=== PATIENT | female | born 1995 | race Two or more races ===

== ENCOUNTER 2024-10-13 16:47 | Emergency (ER) | payer MEDICAID, SELFPAY ==
[2024-10-13 17:07] VITALS: BP 124/80; PULSE 88; RESP 18; TEMP 37.1; O2SAT 99; BMI 40.0
--- NOTE | 2024-10-13 17:14 | PD.EDRME ---
Rapid Medical Screening Exam RME Arrival date/time: 10/13/24 16:47 28-year-old female presents emergency department complaining of blurry vision and chest pain that started at work around 3 PM. Chief Complaint: Eye Problems Vital signs: Vital Signs Temperature 98.7 F 10/13/24 17:07 Pulse Rate 88 10/13/24 17:07 Respiratory Rate 18 10/13/24 17:07 Blood Pressure 124/80 10/13/24 17:07 Pulse Oximetry (%) 99 10/13/24 17:07 Oxygen Delivery Method Room Air 10/13/24 17:07 Vital signs reviewed by provider: Yes
--- NOTE | 2024-10-13 17:16 | XR_ITS ---
Examination: PA lateral chest 2 views Technique: Upright PA lateral chest 2 views Exam date and time: October 13, 2024 at 1737 hrs. Indications: Chest pain today Findings: Normal heart size No pneumonia or pulmonary edema The osseous structures are intact Impression: No active disease
--- NOTE | 2024-10-13 17:16 | XR_ITS ---
Examination: CT brain head without contrast. 2-D sagittal coronal reconstructions Date and time of exam:October 13, 2024 1723 hrs. Indications: Onset headaches blurred vision today CTDI: vol (mGy):51.2 DLP: (mGycm):1019 Technique: Multiple CT axial sections of the brain have been obtained, 5 mm slice thickness. Contrast has not been administered. 2-D sagittal, coronal reconstructions have been obtained Low dose protocols were performed. One or more of the following dose reduction techniques were used; automated exposure control, adjustment of the mA and/or KV according to patient size, use of iterative reconstruction technique. Findings: No significant ventricular enlargement. Intra-axial or extra-axial hemorrhage density is not seen. No mass effect or midline shift Basal cisterns are not remarkable. Fourth ventricle is midline. Cranial vault intact. Impression: Negative for acute hemorrhage, mass effect or midline shift If new onset headaches blurred vision persists, consider brain MRI follow-up
--- NOTE | 2024-10-13 17:16 | EKG_ITS ---
[facility] Test Date: 2024-10-13 Pat Name: CARRIE ORTEGA Department: Room: - Gender: Female [employer]om Boss: : 1995 Requested By: Raad Can ([facility]) Order Number: [id number] Reading MD: Raad Can ([facility]) Measurements Intervals [place] Rate: 72 P: 18 HI: 150 QRS: 30 QRSD: 81 T: 16 QT: 357 QTc: 391 Interpretive Statements SINUS RHYTHM Compared to ECG 06/29/2023 15:10:30 No significant changes /store/S0/[id number].pdf
[2024-10-13 18:34] LABS: Basophils # (Auto) 0.1 Thou/mm3 (0.0-0.2); Basophils % (Auto) 1 % (0-2.5); Eosinophils # (Auto) 0.2 Thou/mm3 (0.0-0.5); Eosinophils % (Auto) 2 % (0-10); Hematocrit 43.3 % (36.0-46.0); Hemoglobin 15.1 g/dL (12.0-16.0); Immature Granulocytes % (Auto) 0 % (0-0); Immature Granulocytes Auto 0.02 Thou/mm3 (0.00-0.00); Lymphocytes # (Auto) 2.9 Thou/mm3 (1.0-4.8); Lymphocytes % (Auto) 28 % (10-50); Mean Corpuscular HGB Conc 34.9 g/dl (31.0-37.0); Mean Corpuscular Hemoglobin 31.1 pg (25.0-35.0); Mean Corpuscular Volume 89 fL (80-100); Monocytes # (Auto) 0.8 Thou/mm3 (0.0-0.8); Monocytes % (Auto) 7 % (0-12); Neutrophils # (Auto) 6.4 Thou/mm3 (1.8-7.7); Neutrophils % (Auto) 62 % (37-80); Nucleated Red Blood Cell % 0 /100 WBC (0); Platelet Count 267 Thou/mm3 (140-440); RDW Standard Deviation 41.2 fL (36.4-46.3); Red Blood Count 4.85 Miln/mm3 (4.00-5.20); White Blood Count 10.3 Thou/mm3 (3.6-11.0)
[2024-10-13 18:43] LABS: Amphetamine/Methamp Scrn,U Negative (Negative); Barbiturate Screen,Urine Negative (Negative); Benzodiazepines Screen,Urine Negative (Negative); Benzoylecgonine Screen, Ur Negative (Negative); Fentanyl Screen,Urine Negative (Negative); Opiate Screen,Urine Negative (Negative); THC Screen,Urine Negative (Negative)
[2024-10-13 18:52] LABS: Alanine Aminotransferase 84 U/L (10-49); Alkaline Phosphatase 50 U/L (46-116); Anion Gap 5 (7-16); Aspartate Amino Transferase 36 U/L (0-34); BUN/Creatinine Ratio 19 Ratio (12-20); Bilirubin,Total 0.5 mg/dL (0.3-1.2); Blood Urea Nitrogen 13 mg/dL (9-23); Calcium 10.1 mg/dL (8.3-10.6); Calcium (Corrected) 10.1 mg/dL (8.5-10.1); Carbon Dioxide 28.8 mMol/L (20.0-31.0); Chloride 104 mMol/L (98-107); Creatinine (Component) 0.7 mg/dL (0.6-1.3); Estimated Creatinine Clearance 150.8 mL/min (>60); Globulin 2.5 gm/dL (2.3-3.5); Glucose 91 mg/dL (74-106); Osmolality,Calculated 275 (275-295); Potassium 4.2 mMol/L (3.4-5.1); Sodium 138 mMol/L (136-145); Total Protein 7.5 gm/dL (5.7-8.2); Troponin I < 0.002 ng/mL (0.0-0.045); eGFR > 60 See Note
[2024-10-13 18:57] LABS: Partial Thromboplastin Time 28.5 Seconds (22.0-36.0); Prothrombin Time 10.9 Seconds (9.0-12.2)
--- NOTE | 2024-10-13 20:20 | PC.NURSE ---
NO ANSWER AT ER LOBBY OR OUTSIDE ER TO BE RE EVALUATED.
--- NOTE | 2024-10-13 20:33 | PC.NURSE ---
NO ANSWER AT ER LOBBY OR OUTSIDE ER.
--- NOTE | 2024-10-13 20:51 | PC.NURSE ---
NO ANSWER AT ER LOBBY OR OUTSIDE ER.
== END 2024-10-13 20:52 | disposition left against medical advice (07) ==
PROVIDERS: Emergency Provider Licensed Practical Nurse; PCP Physician Assistant
DX: H53.8 Other visual disturbances (principal); R07.9 Chest pain, unspecified; Z53.21 Procedure and treatment not carried out due to patient leaving prior to being seen by health care provider
CPT/HCPCS: 36415; 70450; 71046; 80053; 80307; 83735; 84484; 85025; 85610; 85730; 93005; 99281

== ENCOUNTER 2025-07-31 12:06 | Emergency (ER) | payer MEDICAID, SELFPAY ==
[2025-07-31 12:24] VITALS: BP 111/75; PULSE 78; RESP 16; TEMP 37.1; O2SAT 97; BMI 40.6
--- NOTE | 2025-07-31 12:28 | XR_ITS ---
Examination: Complete OB ultrasound, less than 14 weeks, transabdominal Date and time of exam: July 31, 2025 1306 hours INDICATIONS: Vaginal bleeding and pelvic cramping beginning 2 days ago Technique: Obstetrical ultrasound images less than 14 weeks performed via transabdominal imaging Findings: Uterus 10.7 cm Empty intrauterine gestational sac 1.5 cm correspondences 6 weeks 2 days gestational age No pole, no cardiac activity Subchorionic hemorrhages 16 x 6 x 16 mm Right ovary 4.8 cm arterial flow 35 mm I 24 mm cyst Left ovary 2.7 cm arterial flow IMPRESSION: Empty intrauterine gestational sac corresponding to 6 weeks 2 days gestational age Recommend short-term follow-up transvaginal pelvic sonography
[2025-07-31 12:59] LABS: Collection Type, Urine Clean Catch
[2025-07-31 13:03] LABS: Basophils # (Auto) 0.0 Thou/mm3 (0.0-0.2); Basophils % (Auto) 0 % (0-2.5); Eosinophils # (Auto) 0.1 Thou/mm3 (0.0-0.5); Eosinophils % (Auto) 1 % (0-10); Hematocrit 39.3 % (36.0-46.0); Hemoglobin 13.5 g/dL (12.0-16.0); Immature Granulocytes Auto 0.04 Thou/mm3 (0.00-0.00); Lymphocytes # (Auto) 2.3 Thou/mm3 (1.0-4.8); Lymphocytes % (Auto) 23 % (10-50); Mean Corpuscular HGB Conc 34.4 g/dl (31.0-37.0); Mean Corpuscular Hemoglobin 30.8 pg (25.0-35.0); Mean Corpuscular Volume 90 fL (80-100); Monocytes # (Auto) 0.5 Thou/mm3 (0.0-0.8); Monocytes % (Auto) 6 % (0-12); Neutrophils # (Auto) 6.7 Thou/mm3 (1.8-7.7); Neutrophils % (Auto) 70 % (37-80); Nucleated Red Blood Cell # 0.00 Thou/mm3 (0.00-0.00); Nucleated Red Blood Cell % 0 /100 WBC (0); Platelet Count 219 Thou/mm3 (140-440); RDW Standard Deviation 42.5 fL (36.4-46.3); Red Blood Count 4.38 Miln/mm3 (4.00-5.20); White Blood Count 9.6 Thou/mm3 (3.6-11.0)
[2025-07-31 13:11] LABS: Bilirubin,Urine Negative (Negative); Blood,Urine Negative (Negative); Clarity,Urine Clear (Clear/Hazy); Color,Urine Lt-Yellow (Lt Yel-Yel); Glucose, Urine Negative (Negative); Ketones,Urine Negative (Negative); Leukocyte Esterase,Urine Negative (Negative); Nitrite,Urine Negative (Negative); PH,Urine 5.5 (5.0-7.0); Protein,Urine Negative (Neg - Trace); RBC,Urine 2 /hpf (0-3); Specific Gravity,Urine 1.024 (1.001-1.035); Squamous Epithelial Cell,Urine 1 /hpf (0-5); Urobilinogen,Urine Negative mg/dL (0.0-1.0); WBC,Urine 1 /hpf (0-5)
[2025-07-31 13:25] LABS: Alanine Aminotransferase 17 U/L (10-49); Albumin, Serum 4.1 gm/dL (3.5-5.0); Albumin/Globulin Ratio 1.7 (1.2-2.2); Alkaline Phosphatase 35 U/L (46-116); Anion Gap 9 (7-16); Aspartate Amino Transferase 14 U/L (0-34); BUN/Creatinine Ratio 8 Ratio (12-20); Bilirubin,Total 0.4 mg/dL (0.3-1.2); Blood Urea Nitrogen 5 mg/dL (9-23); Calcium 9.8 mg/dL (8.3-10.6); Calcium (Corrected) 9.8 mg/dL (8.5-10.1); Carbon Dioxide 25.1 mMol/L (20.0-31.0); Chloride 106 mMol/L (98-107); Creatinine (Component) 0.6 mg/dL (0.6-1.3); Estimated Creatinine Clearance 176.0 mL/min (>60); Globulin 2.4 gm/dL (2.3-3.5); Glucose 111 mg/dL (74-106); Osmolality,Calculated 277 (275-295); Potassium 3.9 mMol/L (3.4-5.1); Sodium 140 mMol/L (136-145); Total Protein 6.5 gm/dL (5.7-8.2); eGFR > 60 See Note
[2025-07-31 13:52] LABS: Beta HCG,Quantitative 18732 mIU/mL (<5.0)
--- NOTE | 2025-07-31 14:46 | EDNOTE_ITS ---
<Statement entered by Anali Hodgson MD - 08/19/25 06:05> As co-signing physician, I was present and available for consult prn. I concur with the plan and care as documented by the midlevel provider. ED Abdominal Pain RME/HPI General Chief Complaint: Abdominal Pain Stated complaint: ABD CRAMPING, APPROX 6 WEEKS PREG Time seen by provider: 07/31/25 12:27 Arrival date/time: 07/31/25 12:06 29year-old female presents to the emergency department today for complaints of pelvic cramping patient for symptoms onset 2 to 3 days ago patient was reports vaginal spotting Limitations: no limitations Related Data Previous Rx's ?Medication ?Instructions ?Recorded ondansetron 4 mg disintegrating 4 mg PO Q6H PRN nausea and 12/14/23 tablet vomiting #10 tabs ibuprofen 800 mg tablet (IBU) 800 mg PO Q8H #20 tabs 0 07/05/24 Allergies Allergy/AdvReac Type Severity Reaction Status Date / Time No Known Allergies Allergy Verified 10/13/24 16:48 Review of Systems Review of Systems Systems Reviewed: All systems reviewed, normal except as documented Constitutional Constitutional: Reports system reviewed and no additional complaints, except as documented, Denies fever(s) and Denies headache(s) Eyes Eyes: Reports system reviewed and no additional complaints, except as documented and Denies blurry vision ENT Ears, Nose, Mouth, and Throat: Reports system reviewed and no additional complaints, except as documented, Denies headache(s), Denies nasal congestion and Denies nasal discharge Cardiovascular Cardiovascular: Reports system reviewed and no additional complaints, except as documented, Denies chest pain and Denies dyspnea Respiratory Respiratory: Reports system reviewed and no additional complaints, except as documented, Denies chest congestion, Denies cough and Denies dyspnea Gastrointestinal Gastrointestinal: Reports system reviewed and no additional complaints, except as documented and Reports abdominal pain Integumentary/Breasts Skin/Breast: Reports system reviewed and no additional complaints, except as documented and Denies rash Neurologic Neurologic: Reports system reviewed and no additional complaints, except as documented, Reports as per HPI and Denies headache(s) Past Medical History Past Medical History CARDIAC: Negative Congestive Heart Failure RESPIRATORY: Negative Chronic Obstructive Pulmonary Disease (COPD) GENITOURINARY: Negative Renal Disease ENDOCRINE: Negative Diabetes Mellitus Type 1 or Diabetes Mellitus Type 2 Social History SMOKING STATUS: Never smoker ED Exam General Limitations: Present no limitations General appearance: Present alert and in no apparent distress Head Head exam: Present atraumatic Eye Eye exam: Present normal appearance, PERRL and EOMI ENT ENT exam: Present normal exam, normal oropharynx and mucous membranes moist Neck Neck exam: Present normal inspection, full ROM and trachea midline Chest Chest inspection: Present normal inspection and symmetric chest wall rise Respiratory Respiratory exam: Present normal lung sounds bilaterally Cardiovascular Cardiovascular exam: Present regular rate, normal rhythm and normal heart sounds Abdominal Exam Abdominal exam: Present soft and normal bowel sounds; Absent distention, tenderness, guarding, rebound, rigidity, Roberts's sign or tenderness at McBurney's Point Abdominal tenderness: Absent RUQ or RLQ Extremities Exam Extremities exam: Present normal inspection and full ROM Back Exam Back exam: Present normal inspection and full ROM Neurological Exam Neurological exam: Present alert, oriented X3 and CN II-XII intact Psychiatric Psychiatric exam: Present normal affect and normal mood Skin Skin exam: Present warm, dry, intact and normal color Course Quality Measures none Orders Category Date Time Status US OB <= 14 weeks fetus Stat Exams 07/31/25 12:28 Completed ABO/RH Type Stat Lab 07/31/25 12:52 Completed Beta HCG,Quantitative Stat Lab 07/31/25 12:52 Completed CBC Stat Lab 07/31/25 12:52 Completed Comprehensive Metabolic Panel Stat Lab 07/31/25 12:52 Completed UA [Urinalysis] Stat Lab 07/31/25 12:44 Completed Vital Signs Vital signs: Vital Signs Temperature 98.8 F 07/31/25 12:24 Pulse Rate 78 07/31/25 12:24 Respiratory Rate 16 07/31/25 12:24 Blood Pressure 111/75 07/31/25 12:24 Pulse Oximetry (%) 97 07/31/25 12:24 Oxygen Delivery Method Room Air 07/31/25 12:24 O2 Abdominal Pain MDM MDM Narrative MDM Narrative:: 29year-old female presents to the emergency department today for complaints of pelvic cramping patient for symptoms onset 2 to 3 days ago patient was reports vaginal spotting On exam patient well-appearing patient does not appear ill or toxic no acute distress Lab work and imaging obtained Explained to the patient would like to patient have repeat lab work and imaging in 3 to 5 days for worsening symptoms return immediately Patient data External records reviewed:: [facility] previous records Clinical information provided by:: patient Social determinants that could affect healthcare access:: none Patient has the following chronic illnesses:: None How is presenting disease/condition affected by chronic disease/condition?: no chronic disease Evaluation data The following diagnostics were reviewed and interpreted by me:: lab results and radiology exam(s) Lab and/or radiology exams considered but not ordered:: Labs radiology obtained Interpretation Summary: Reviewed by me Medications / Prescriptions Medications or Prescriptions considered but not ordered:: Given Medication administrations:: Given Consultations Consultation(s) initiated? (list below): No Diagnosis Differential diagnosis abdominal pain: abdominal pain, acute appendicitis, pancreatitis and small bowel obstruction Most likely diagnosis given after review of the tests above:: Abdominal pain Admission Indicated Admission indicated?: not indicated Admission Request Was there a request for admission?: No Disposition Plan Disposition Plan: Discharge Discharge Attestation Discharge Attestation: The patient and all family members were given an opportunity to ask questions and understood the discharge instructions. Discharge instructions specifically effects, indications for sooner follow up or return to the emergency department, and the expected course of current diagnosis. Patient condition: Stable Discharge Plan Plan Patient Disposition: HOME (Self Care) Discharge Disposition comment: Stable Prescriptions/Referrals Prescriptions/Med Rec: No Action ondansetron 4 mg tablet,disintegrating 4 mg PO Q6H PRN (Reason: nausea and vomiting) Qty: 10 0RF ibuprofen [IBU] 800 mg tablet 800 mg PO Q8H Qty: 20 0RF Problem List Clinical Impression: , threatened Patient/Caregiver Discharge Instructions Education Materials: ED Possible Miscarriage ... Additional Instructions: Please have repeat lab work and ultrasound in the next 3 to 5 days for worsening symptoms or concerns return immediately Print Language: Dominican Stand Alone Forms: Rosemary Award Info., Work/School Release, Patient Portal Info Letter PA/THREAD REELER Supervising Physician PA/THREAD REELER Supervising Physician: Dr. hodgson
== END 2025-07-31 14:27 | disposition home or self-care (01) ==
LOC: SERX 14:04
PROVIDERS: Emergency Provider Nurse Practitioner Primary Care; PCP Physician Assistant
DX: O20.0 Threatened abortion (principal); Z3A.01 Less than 8 weeks gestation of pregnancy
CPT/HCPCS: 36415; 76801; 80053; 81001; 84702; 85025; 86900; 86901; 99283

== ENCOUNTER 2025-08-06 10:52 | Emergency (ER) | payer MEDICAID, SELFPAY ==
[2025-08-06 11:06] VITALS: BP 122/79; PULSE 73; RESP 18; TEMP 36.7; O2SAT 97; BMI 40.6
--- NOTE | 2025-08-06 11:15 | XR_ITS ---
Examination: OB Transvaginal ultrasound of the pelvis, complete Technique: Transvaginal sonographic images pelvis performed using whyte scale imaging Exam date and time: August 06, 2025 1127 hours INDICATIONS: Empty intrauterine gestational sac 6 weeks 2 days on pelvic sonogram July 31, 2025 FINDINGS: Uterus 12.5 cm pole 0.8 cm correspondences 6 weeks 5 day gestational age Cardiac motion 144 BPM Right ovary 4.6 cm arterial flow 4.0 x 2.6 x 3.9 cm cyst Left ovary obscured by bowel gas IMPRESSION: Viable intrauterine gestation 6 weeks 5 days.
--- NOTE | 2025-08-06 12:23 | EDNOTE_ITS ---
ED OB Contraction Preg RMI/HPI General Chief complaint: OB/Uterine Contractions Stated complaint: INST TO RETURN IN 3-5 DAYS FOR REPEAT U/S & LABS Time Seen by Provider: 08/06/25 11:06 Source: patient Arrival date/time: 08/06/25 10:52 Mode of arrival: ambulatory Limitations: no limitations Related Data Previous Rx's ?Medication ?Instructions ?Recorded ondansetron 4 mg disintegrating 4 mg PO Q6H PRN nausea and 12/14/23 tablet vomiting #10 tabs ibuprofen 800 mg tablet (IBU) 800 mg PO Q8H #20 tabs 0 07/05/24 Allergies Allergy/AdvReac Type Severity Reaction Status Date / Time No Known Allergies Allergy Verified 08/06/25 10:54 Review of Systems Review of Systems Systems Reviewed: All systems reviewed, normal except as documented Constitutional Constitutional: Reports system reviewed and no additional complaints, except as documented, Denies fatigue, Denies fever(s), Denies headache(s) and Denies weakness Eyes Eyes: Reports system reviewed and no additional complaints, except as documented, Denies blurry vision and Denies change in vision ENT Ears, Nose, Mouth, and Throat: Reports system reviewed and no additional complaints, except as documented, Denies otalgia, Denies headache(s), Denies nasal congestion, Denies throat swelling and Denies vertigo Cardiovascular Cardiovascular: Reports system reviewed and no additional complaints, except as documented, Denies chest pain, Denies dyspnea and Denies dyspnea on exertion Respiratory Respiratory: Reports system reviewed and no additional complaints, except as documented, Denies chest congestion, Denies cough, Denies dyspnea, Denies dyspnea on exertion and Denies wheezing Gastrointestinal Gastrointestinal: Reports system reviewed and no additional complaints, except as documented, Denies abdominal pain, Denies cramping, Denies nausea and Denies vomiting Genitourinary Genitourinary: Reports system reviewed and no additional complaints, except as documented and Denies abnormal vaginal bleeding Musculoskeletal Musculoskeletal: Reports system reviewed and no additional complaints, except as documented and Denies back pain Integumentary/Breasts Skin/Breast: Reports system reviewed and no additional complaints, except as documented and Denies wounds Neurologic Neurologic: Reports system reviewed and no additional complaints, except as documented, Denies confusion, Denies headache(s), Denies lack of coordination, Denies vertigo and Denies weakness Psychiatric Psychiatric: Reports system reviewed and no additional complaints, except as documented, Denies anxiety, Denies confusion, Denies depression, Denies paranoia, Denies suicidal ideation and Denies tactile hallucinations Endocrine Endocrine: Reports system reviewed and no additional complaints, except as documented and Denies fatigue Hematologic/Lymphatic Hematologic/Lymphatic: Reports system reviewed and no additional complaints, except as documented and Denies lymphadenopathy Allergic/Immunologic Allergic/Immunologic: Reports system reviewed and no additional complaints, except as documented, Denies throat swelling, Denies urticaria and Denies wheezing Past Medical History Past Medical History CARDIAC: Negative Congestive Heart Failure RESPIRATORY: Negative Chronic Obstructive Pulmonary Disease (COPD) GENITOURINARY: Negative Renal Disease ENDOCRINE: Negative Diabetes Mellitus Type 1 or Diabetes Mellitus Type 2 Social History SMOKING STATUS: Never smoker ED Exam General Limitations: Present no limitations General appearance: Present alert and in no apparent distress Head Head exam: Present atraumatic Eye Eye exam: Present normal appearance, PERRL and EOMI ENT ENT exam: Present normal exam, normal oropharynx and mucous membranes moist Neck Neck exam: Present normal inspection, full ROM and trachea midline Chest Chest inspection: Present normal inspection and symmetric chest wall rise Respiratory Respiratory exam: Present normal lung sounds bilaterally Cardiovascular Cardiovascular exam: Present regular rate, normal rhythm and normal heart sounds Abdominal Exam Abdominal exam: Present soft and normal bowel sounds; Absent distention, tenderness, guarding, rebound or rigidity Extremities Exam Extremities exam: Present normal inspection and full ROM Back Exam Back exam: Present normal inspection and full ROM Neurological Exam Neurological exam: Present alert, oriented X3 and CN II-XII intact Psychiatric Psychiatric exam: Present normal affect and normal mood Skin Skin exam: Present warm, dry, intact and normal color Course Quality Measures none Orders Category Date Time Status US OB transvaginal Stat Exams 08/06/25 11:15 Completed ABO/RH Type Stat Lab 08/06/25 12:09 Completed Beta HCG,Quantitative Stat Lab 08/06/25 12:09 Completed CBC Stat Lab 08/06/25 12:09 Completed CMP [Comprehensive Metabolic Panel] Stat Lab 08/06/25 12:09 Completed UA [Urinalysis] Stat Lab 08/06/25 12:00 Completed Vital Signs Vital signs: Vital Signs Temperature 98.1 F 08/06/25 11:06 Pulse Rate 73 08/06/25 11:06 Respiratory Rate 18 08/06/25 11:06 Blood Pressure 122/79 08/06/25 11:06 Pulse Oximetry (%) 97 08/06/25 11:06 Oxygen Delivery Method Room Air 08/06/25 11:06 OB/Uterine Contractions MDM Narrative MDM Narrative:: 29-year-old female with no known medical history presents to the emergency room with a chief complaint of abdominal cramping. Patient was instructed to return to the emergency room for repeat ultrasound and blood work after they were unable to find heart tones and her last ultrasound. Patient is hemodynamically stable. Patient denies any vaginal bleeding pelvic pain or any abdominal cramping. A transvaginal ultrasound was completed today there is a viable intrauterine gestation at 6 weeks and 5 days. 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 Patient was discharged and educated to follow-up with primary care provider in the next 24 to 48 hours and return to the emergency room for any evidence of worsening signs or symptoms Patient data External records reviewed:: [facility] previous records Clinical information provided by:: patient Social determinants that could affect healthcare access:: none Patient has the following chronic illnesses:: No chronic illness How is presenting disease/condition affected by chronic disease/condition?: no chronic disease Evaluation data The following diagnostics were reviewed and interpreted by me:: lab results and radiology exam(s) Lab and/or radiology exams considered but not ordered:: Labs and radiology exams considered and ordered Interpretation Summary: Ultrasound OB-FINDINGS: Uterus 12.5 cm pole 0.8 cm correspondences 6 weeks 5 day gestational age Cardiac motion 144 BPM Right ovary 4.6 cm arterial flow 4.0 x 2.6 x 3.9 cm cyst Left ovary obscured by bowel gas IMPRESSION: Viable intrauterine gestation 6 weeks 5 days. Medications / Prescriptions Medications or Prescriptions considered but not ordered:: Medication not given Medication administrations:: Medication not given Consultations Consultation(s) initiated? (list below): No Diagnosis OB Contractions Differential Diagnosis: other (Threatened /incomplete / first trimester) Most likely diagnosis given after review of the tests above:: first trimester Admission Indicated Admission indicated?: not indicated Explain why admission is indicated or not indicated:: N/A Admission Request Was there a request for admission?: No Disposition Plan Disposition Plan: Discharge Discharge Attestation Discharge Attestation: The patient and all family members were given an opportunity to ask questions and understood the discharge instructions. Discharge instructions specifically effects, indications for sooner follow up or return to the emergency department, and the expected course of current diagnosis. Patient condition: Stable Discharge Plan Plan Patient Disposition: HOME (Self Care) Discharge Disposition comment: Stable Prescriptions/Referrals Prescriptions/Med Rec: No Action ondansetron 4 mg tablet,disintegrating 4 mg PO Q6H PRN (Reason: nausea and vomiting) Qty: 10 0RF ibuprofen [IBU] 800 mg tablet 800 mg PO Q8H Qty: 20 0RF Referrals: Fabio ([facility]),AVA Macias [Primary Care Provider] - In 1 week Problem List Clinical Impression: Patient/Caregiver Discharge Instructions Education Materials: First Trimester Additional Instructions: Please follow-up with your EQUIPMENT TECHNICIAN in the next 24 to 48 hours Your ultrasound shows a viable intrauterine gestation at 6 weeks and 5 days. Your heart tones are 144 bpm. Your hCG levels are 45,048 For any evidence of worsening signs or symptoms return to the emergency room immediately Print Language: Honduran Stand Alone Forms: Rosemary Award Info., Work/School Release, Patient Portal Info Letter PA/SHANE Supervising Physician PA/SHANE Supervising Physician: Dr. Luna
[2025-08-06 12:28] LABS: Collection Type, Urine Clean Catch
[2025-08-06 12:37] LABS: Basophils # (Auto) 0.0 Thou/mm3 (0.0-0.2); Basophils % (Auto) 0 % (0-2.5); Eosinophils # (Auto) 0.1 Thou/mm3 (0.0-0.5); Eosinophils % (Auto) 1 % (0-10); Hematocrit 39.1 % (36.0-46.0); Hemoglobin 13.6 g/dL (12.0-16.0); Immature Granulocytes Auto 0.03 Thou/mm3 (0.00-0.00); Lymphocytes # (Auto) 2.3 Thou/mm3 (1.0-4.8); Lymphocytes % (Auto) 27 % (10-50); Mean Corpuscular HGB Conc 34.8 g/dl (31.0-37.0); Mean Corpuscular Hemoglobin 31.3 pg (25.0-35.0); Mean Corpuscular Volume 90 fL (80-100); Monocytes # (Auto) 0.4 Thou/mm3 (0.0-0.8); Monocytes % (Auto) 5 % (0-12); Neutrophils # (Auto) 5.6 Thou/mm3 (1.8-7.7); Neutrophils % (Auto) 66 % (37-80); Nucleated Red Blood Cell # 0.00 Thou/mm3 (0.00-0.00); Nucleated Red Blood Cell % 0 /100 WBC (0); Platelet Count 232 Thou/mm3 (140-440); RDW Standard Deviation 41.8 fL (36.4-46.3); Red Blood Count 4.35 Miln/mm3 (4.00-5.20); White Blood Count 8.5 Thou/mm3 (3.6-11.0)
[2025-08-06 13:03] LABS: Bilirubin,Urine Negative (Negative); Blood,Urine Negative (Negative); Clarity,Urine Clear (Clear/Hazy); Color,Urine Yellow (Lt Yel-Yel); Glucose, Urine Negative (Negative); Ketones,Urine Negative (Negative); Leukocyte Esterase,Urine Negative (Negative); Nitrite,Urine Negative (Negative); PH,Urine 5.5 (5.0-7.0); Protein,Urine Negative (Neg - Trace); RBC,Urine 3 /hpf (0-3); Specific Gravity,Urine 1.028 (1.001-1.035); Squamous Epithelial Cell,Urine 1 /hpf (0-5); Urobilinogen,Urine Negative mg/dL (0.0-1.0); WBC,Urine 1 /hpf (0-5)
[2025-08-06 13:36] LABS: Alanine Aminotransferase 18 U/L (10-49); Albumin, Serum 4.2 gm/dL (3.5-5.0); Albumin/Globulin Ratio 1.8 (1.2-2.2); Alkaline Phosphatase 31 U/L (46-116); Anion Gap 8 (7-16); Aspartate Amino Transferase 14 U/L (0-34); BUN/Creatinine Ratio 8 Ratio (12-20); Beta HCG,Quantitative 45048 mIU/mL (<5.0); Bilirubin,Total 0.5 mg/dL (0.3-1.2); Blood Urea Nitrogen < 5 mg/dL (9-23); Calcium 9.5 mg/dL (8.3-10.6); Calcium (Corrected) 9.5 mg/dL (8.5-10.1); Carbon Dioxide 23.7 mMol/L (20.0-31.0); Chloride 107 mMol/L (98-107); Creatinine (Component) 0.6 mg/dL (0.6-1.3); Estimated Creatinine Clearance 176.0 mL/min (>60); Globulin 2.4 gm/dL (2.3-3.5); Glucose 87 mg/dL (74-106); Osmolality,Calculated 273 (275-295); Potassium 4.0 mMol/L (3.4-5.1); Sodium 139 mMol/L (136-145); Total Protein 6.6 gm/dL (5.7-8.2); eGFR > 60 See Note
== END 2025-08-06 14:23 | disposition home or self-care (01) ==
PROVIDERS: Emergency Provider Nurse Practitioner Family; PCP Physician Assistant
DX: O34.81 Maternal care for other abnormalities of pelvic organs, first trimester (principal); N83.201 Unspecified ovarian cyst, right side; Z3A.01 Less than 8 weeks gestation of pregnancy
CPT/HCPCS: 36415; 76817; 80053; 81001; 84702; 85025; 86900; 86901; 99283

== ENCOUNTER 2025-09-25 18:27 | Inpatient (IN) | payer MEDICAID, SELFPAY ==
[2025-09-25 18:27] VITALS: BMI 38.2
--- NOTE | 2025-09-25 18:43 | XR_ITS ---
Examination: Duplex scan of the lower extremity, unilateral right Date and time of exam: September 25, 2025, 195 hours INDICATIONS: Right leg redness swelling and pain beginning this week Technique: Duplex scan of the extremity veins using B-mode/grayscale imaging and Doppler spectral analysis and color flow Attention is directed to internal echogenicity, compression and augmentation involving these veins, color flow assessment, spectral analysis Findings: Major deep venous structures in the extremity demonstrate normal course and caliber. There is no evidence of deep vein thrombosis. Normal color flow and spectral analysis Impression: Negative for DVT..
[2025-09-25 18:46] VITALS: BP 120/78; PULSE 128; RESP 20; TEMP 38.3; O2SAT 99
--- NOTE | 2025-09-25 18:48 | XR_ITS ---
Examination: Tibia-Fibula, right, 2 views Technique: Tibia-fibula AP lateral 2 views Date and time of exam: September 25, 2025, 1929 hours INDICATIONS: Redness swelling and pain involving the leg today FINDINGS: No fracture. No cortical bone destruction. No periosteal new bone formation Soft tissue venous calcification IMPRESSION: Negative for fracture, negative for osteomyelitis
--- NOTE | 2025-09-25 18:59 | PD.EDEXREM ---
ED Extremity Problem RME/HPI General Chief complaint: Extremity Problem,Nontraumatic Stated complaint: R LEG SWELLING; 14 WEEKS OB; R/O DVT Time Seen by Provider: 09/25/25 18:48 Arrival date/time: 09/25/25 18:27 29F with no significant PMH presents to ED with 2 days of RLE redness and swelling. Patient is 14 weeks . Patient denies any injury to leg and recent water exposure. Patient was seen in [facility] ED earlier where US was neg for DVT per patient. Patient was given a single dose of Keflex and discharged. Patient states pain and swelling is worsening. Patient is 14 weeks . Limitations: no limitations Related Data Previous Rx's ?Medication ?Instructions ?Recorded ondansetron 4 mg disintegrating 4 mg PO Q6H PRN nausea and 12/14/23 tablet vomiting #10 tabs ibuprofen 800 mg tablet (IBU) 800 mg PO Q8H #20 tabs 07/05/24 Allergies Allergy/AdvReac Type Severity Reaction Status Date / Time No Known Allergies Allergy Verified 09/25/25 18:30 Review of Systems Review of Systems Systems Reviewed: All systems reviewed, normal except as documented Integumentary/Breasts Skin/Breast: Reports as per HPI, Reports rash and Reports skin pain Past Medical History Past Medical History CARDIAC: Negative Congestive Heart Failure RESPIRATORY: Negative Chronic Obstructive Pulmonary Disease (COPD) GENITOURINARY: Negative Renal Disease ENDOCRINE: Negative Diabetes Mellitus Type 1 or Diabetes Mellitus Type 2 Social History SMOKING STATUS: Never smoker ED Exam General Limitations: Present no limitations General appearance: Present alert and in no apparent distress Head Head exam: Present atraumatic Neck Neck exam: Present normal inspection, full ROM and trachea midline Chest Chest inspection: Present normal inspection and symmetric chest wall rise Extremities Exam Extremities exam: Present full ROM Expanded Lower Extremity Exam Lower leg exam: Present full ROM (R), tenderness, swelling and erythema Neurological Exam Neurological exam: Present alert and oriented X3 Psychiatric Psychiatric exam: Present normal affect and normal mood Skin Skin exam: Present warm, dry, intact and normal color Course Quality Measures none Orders Category Date Time Status Admit to Inpatient Status Routine Admission 09/25/25 22:16 Active Patient Condition Routine Admission 09/25/25 22:16 Ordered Activity as Tolerated Routine Care 09/25/25 22:17 Ordered COVID-19 Screening Questionnaire NOW Care 09/25/25 20:48 Active Decision to Admit X1 Care 09/25/25 20:48 Completed Insert IV NOW Care 09/25/25 18:48 Completed Notify provider NEEDED Care 09/25/25 22:16 Active US venous doppler LE RT Stat Exams 09/25/25 18:43 Completed XR tibia fibula RT 2V Stat Exams 09/25/25 18:48 Completed A1C [Glycohemoglobin w (eAG)] Stat Lab 09/25/25 18:57 Completed Basic Metabolic Panel AM DRAW Lab 09/26/25 05:00 Ordered Basic Metabolic Panel AM DRAW Lab 09/27/25 05:00 Ordered Basic Metabolic Panel AM DRAW Lab 09/28/25 05:00 Ordered Blood Culture (Lab) Stat Lab 09/25/25 18:57 Received CBC AM DRAW Lab 09/26/25 05:00 Ordered CBC AM DRAW Lab 09/27/25 05:00 Ordered CBC AM DRAW Lab 09/28/25 05:00 Ordered CBC Stat Lab 09/25/25 18:57 Completed CMP [Comprehensive Metabolic Panel] Stat Lab 09/25/25 18:57 Completed CRP [C-Reactive Protein] Stat Lab 09/25/25 18:57 Completed Drug Screen,Urine Stat Lab 09/25/25 19:29 Completed ESR [Sed Rate (ESR)] Stat Lab 09/25/25 18:57 Completed Lactate (Lactic Acid) Stat Lab 09/25/25 18:57 Completed Procalcitonin Stat Lab 09/25/25 18:57 Completed Thyroid Stimulating Hormone AM DRAW Lab 09/26/25 05:00 Ordered UA, C/S IF [Urinalysis, C/S if Indicated] Stat Lab 09/25/25 19:29 Completed Urine Culture Stat Lab 09/25/25 19:29 Received Acetaminophen Tab [Tylenol ES Tab] Med 09/25/25 18:48 Discontinued 1,000 mg PO X1 ONE Acetaminophen Tab [Tylenol Tab] Med 09/25/25 22:16 Active 650 mg PO Q6H PRN Enoxaparin [Lovenox] Med 09/26/25 09:00 Active 40 mg SC QDAY Sodium Chloride 0.9% 1000 ml [Ns] 1,000 ml Med 09/25/25 18:48 Discontinued IV 999 mls/hr Sodium Chloride 0.9% 1000 ml [Ns] 1,000 ml Med 09/25/25 20:08 Discontinued IV 999 mls/hr ceFAZolin/D5W 2 GM IV [Ancef 2gm Ivpb] Med 09/25/25 18:48 Discontinued 2 gm in 100 ml IV X1 cefTRIAXone/D5w 1gm IV premix [Rocephin/D5w 1gm IV Med 09/25/25 22:15 Active premix] 1 gm in 50 ml IV QDAY Code Status Routine Oth 09/25/25 22:16 Ordered Vital Signs Vital signs: Vital Signs Temperature 100.9 F H 09/25/25 18:46 Pulse Rate 128 H 09/25/25 18:46 Respiratory Rate 20 09/25/25 18:46 Blood Pressure 120/78 09/25/25 18:46 Pulse Oximetry (%) 99 09/25/25 18:46 Oxygen Delivery Method Room Air 09/25/25 18:46 O2 at 99% on RA and WNLs Extremity Problem MDM Narrative MDM Narrative:: 29F with no significant PMH presents to ED with 2 days of RLE redness and swelling. Patient is 14 weeks . Patient denies any injury to leg and recent water exposure. Patient was seen in [facility] ED earlier where US was neg for DVT per patient. Patient was given a single dose of Keflex and discharged. Patient states pain and swelling is worsening. Patient is 14 weeks . Physical exam reveals area of redness, tenderness and swelling on R tibia area. Distal sensation is intact. Patient is febrile and maternal sepsis was initiated @1848. US no DVT. XR unremarkable. Moderate leukocytosis. Minimal elevation of procal and CRP. A1C and drug screen neg. Spoke to IM Resident who reports to Dr. Brady, who will admit patient. Patient data External records reviewed:: [facility] previous records Clinical information provided by:: patient Social determinants that could affect healthcare access:: none Patient has the following chronic illnesses:: none How is presenting disease/condition affected by chronic disease/condition?: no chronic disease Evaluation data The following diagnostics were reviewed and interpreted by me:: lab results and radiology exam(s) Lab and/or radiology exams considered but not ordered:: ordered Interpretation Summary: above Medications / Prescriptions Medications or Prescriptions considered but not ordered:: ordered Medication administrations:: Medication Administration History Acetaminophen (Acetaminophen 325 Mg Tablet) 650 mg PO Q6H PRN PRN Reason: Fever >101.5 or pain Stop: 10/25/25 22:15 Enoxaparin Sodium (Enoxaparin Sod Inj 40 Mg/0.4 Ml Syringe) 40 mg SC QDAY PASCUAL Stop: 10/10/25 08:59 Ceftriaxone Sodium/Dextrose (Rocephin/D5w 1gm Iv Premix) 1 gm in 50 mls @ 100 mls/hr IV QDAY PASCUAL Stop: 10/02/25 22:14 Discontinued Medications Acetaminophen (Acetaminophen 500 Mg Tablet) 1,000 mg PO X1 ONE Stop: 09/25/25 18:49 Last Admin: 09/25/25 19:31 Dose: 1,000 mg Documented By: BD Sodium Chloride (Ns) 1,000 mls @ 999 mls/hr IV .Q1H1M ONE Stop: 09/25/25 19:48 Last Infusion: 09/25/25 20:51 Dose: Infused Documented By: Admin: 09/25/25 19:46 Dose: 999 mls/hr Documented By: BD Cefazolin Sodium (Ancef 2gm Ivpb) 2 gm in 100 mls @ 200 mls/hr IV X1 ONE Stop: 09/25/25 19:17 Last Infusion: 09/25/25 20:22 Dose: Infused Documented By: Admin: 09/25/25 19:46 Dose: 200 mls/hr Documented By: BD Sodium Chloride (Ns) 1,000 mls @ 999 mls/hr IV .Q1H1M ONE Stop: 09/25/25 21:08 Last Infusion: 09/25/25 21:58 Dose: Infused Documented By: Admin: 09/25/25 20:53 Dose: 999 mls/hr Documented By: CVL above Consultations Consultation(s) initiated? (list below): Yes Diagnosis Extremity Problem Differential Diagnosis: herpes zoster, gout, cellulitis, superficial thrombophlebitis, deep venous thrombosis of upper extremity, lower extremity edema and deep vein thrombosis of lower extremity Most likely diagnosis given after review of the tests above:: cellulitis Admission Indicated Admission indicated?: indicated Admission Request Was there a request for admission?: Yes Admission Attestation Admission request attestation: Discussed case with [Dr. Brady] from Hospitalist service regarding admission. Discussed patients ED course, exam findings, labs, and radiology results. The Hospitalist [agrees] to accept the patient for admission. Disposition Plan Disposition Plan: Admit Discharge Plan Plan Patient Disposition: Admit Acute Care w/in Hospital Prescriptions/Referrals Prescriptions/Med Rec: No Action ondansetron 4 mg tablet,disintegrating 4 mg PO Q6H PRN (Reason: nausea and vomiting) Qty: 10 0RF ibuprofen [IBU] 800 mg tablet 800 mg PO Q8H Qty: 20 0RF Referrals: Fabio ([facility]),AVA Macias [Primary Care Provider] - In 1 week Problem List Clinical Impression: Cellulitis Patient/Caregiver Discharge Instructions Print Language: Ecuadorean Stand Alone Forms: Rosemary Award Info., Patient Portal Info Letter
[2025-09-25 19:02] LABS: Lactate (Lactic Acid) 1.4 mMol/L (0.4-2.0)
[2025-09-25 19:06] LABS: Basophils # (Auto) 0.0 Thou/mm3 (0.0-0.2); Basophils % (Auto) 0 % (0-2.5); Eosinophils # (Auto) 0.1 Thou/mm3 (0.0-0.5); Eosinophils % (Auto) 0 % (0-10); Hematocrit 38.6 % (36.0-46.0); Hemoglobin 13.8 g/dL (12.0-16.0); Immature Granulocytes Auto 0.05 Thou/mm3 (0.00-0.00); Lymphocytes # (Auto) 0.2 Thou/mm3 (1.0-4.8); Lymphocytes % (Auto) 1 % (10-50); Mean Corpuscular HGB Conc 35.8 g/dl (31.0-37.0); Mean Corpuscular Hemoglobin 30.9 pg (25.0-35.0); Mean Corpuscular Volume 87 fL (80-100); Monocytes # (Auto) 0.3 Thou/mm3 (0.0-0.8); Monocytes % (Auto) 2 % (0-12); Neutrophils # (Auto) 16.3 Thou/mm3 (1.8-7.7); Neutrophils % (Auto) 96 % (37-80); Nucleated Red Blood Cell # 0.00 Thou/mm3 (0.00-0.00); Nucleated Red Blood Cell % 0 /100 WBC (0); Platelet Count 210 Thou/mm3 (140-440); RDW Standard Deviation 40.0 fL (36.4-46.3); Red Blood Count 4.46 Miln/mm3 (4.00-5.20); White Blood Count 17.0 Thou/mm3 (3.6-11.0)
[2025-09-25 19:23] LABS: Sed Rate (ESR) 11 mm/hr (0-20)
[2025-09-25 19:29] LABS: Alanine Aminotransferase 18 U/L (10-49); Albumin, Serum 4.6 gm/dL (3.5-5.0); Albumin/Globulin Ratio 2.1 (1.2-2.2); Alkaline Phosphatase 37 U/L (46-116); Anion Gap 11 (7-16); Aspartate Amino Transferase 22 U/L (0-34); BUN/Creatinine Ratio 8 Ratio (12-20); Bilirubin,Total 0.6 mg/dL (0.3-1.2); Blood Urea Nitrogen < 5 mg/dL (9-23); C-Reactive Protein 3.0 mg/dL (0.0-0.9); Calcium 9.2 mg/dL (8.3-10.6); Calcium (Corrected) 9.2 mg/dL (8.5-10.1); Carbon Dioxide 24.1 mMol/L (20.0-31.0); Chloride 103 mMol/L (98-107); Creatinine (Component) 0.6 mg/dL (0.6-1.3); Estimated Creatinine Clearance 170.1 mL/min (>60); Globulin 2.2 gm/dL (2.3-3.5); Glucose 121 mg/dL (74-106); Osmolality,Calculated 273 (275-295); Potassium 3.5 mMol/L (3.4-5.1); Procalcitonin 1.23 ng/ml (0.0-0.49); Sodium 138 mMol/L (136-145); Total Protein 6.8 gm/dL (5.7-8.2); eGFR > 60 See Note
[2025-09-25 19:31] VITALS: TEMP 38.3
[2025-09-25] MEDS: ACETAMINOPHEN 500 MG TABLET 1000 MG PO (19:31)
[2025-09-25 19:37] LABS: Glucose Estimated Average 97 mg/dL (80-131); Hemoglobin A1C 5.0 % Hgb (4.8-6.0)
[2025-09-25 19:46] LABS: Collection Type, Urine Clean Catch
[2025-09-25] MEDS: SODIUM CHLORIDE 0.9% 1000 ML 1,000 ML 999 ML IV ×2 (19:46→20:53)
[2025-09-25] MEDS: ceFAZolin/D5W 2 GM IV 2 GM/100 ML BAG IV (19:46)
[2025-09-25 19:58] LABS: Amphetamine/Methamp Scrn,U Negative (Negative); Barbiturate Screen,Urine Negative (Negative); Benzodiazepines Screen,Urine Negative (Negative); Benzoylecgonine Screen, Ur Negative (Negative); Fentanyl Screen,Urine Negative (Negative); Opiate Screen,Urine Negative (Negative); THC Screen,Urine Negative (Negative)
[2025-09-25 20:09] LABS: Bacteria,Urine Rare; Bilirubin,Urine Negative (Negative); Blood,Urine Trace (Negative); Clarity,Urine Clear (Clear/Hazy); Color,Urine Yellow (Lt Yel-Yel); Glucose, Urine Negative (Negative); Ketones,Urine 2+ (Negative); Leukocyte Esterase,Urine Positive (Negative); Nitrite,Urine Negative (Negative); PH,Urine 5.5 (5.0-7.0); Protein,Urine 1+ (Neg - Trace); RBC,Urine 10 /hpf (0-3); Specific Gravity,Urine 1.026 (1.001-1.035); Squamous Epithelial Cell,Urine 4 /hpf (0-5); Urobilinogen,Urine 2.0 mg/dL (0.0-1.0); WBC,Urine 24 /hpf (0-5)
[2025-09-25 20:10] LABS: Culture Indicated,Urine Yes
[2025-09-25 20:34] VITALS: BP 102/73; PULSE 104; RESP 18; TEMP 37.1; O2SAT 99
[2025-09-25 21:42] VITALS: BP 105/60; PULSE 97; RESP 18; TEMP 37; O2SAT 99
[2025-09-25] MEDS: cefTRIAXone/D5w 1gm IV premix 1 GM/50 ML BAG IV (22:32)
--- NOTE | 2025-09-25 23:18 | PC.NURSE ---
REPORT GIVEN TO SOFY MORENO AT [facility].
[2025-09-25 23:23] VITALS: BMI 86.0
--- NOTE | 2025-09-26 01:34 | PD.RESHP ---
Documentation for date of: 09/26/25 [facility] History of Present Illness Chief complaint: right leg is hurting History of present illness: Sayra Lopez is 29 yr female with no significant PMH. She has had four vaginal deliveries in the past. Currently is 14 weeks . Presenting with chief complaint of right lower extremity pain that started 1 to 2 days ago. Patient first started experiencing cramping sensation in her leg and painful area of erythema. She was evaluated at [facility] for worsening symptoms and underwent workup for DVT which was negative. Since that visit, the area has progressively worsened with spreading erythema, increasing tenderness, and warmth. She also reported subjective fevers at home and presented for further evaluation. Denies any headache, chest pain, abdominal pain, abnormal discharge, no dysuria. Last OBGYN visit was few days ago. On arrival patient was tachycardia HR 128, temp 100.9, leukocytosis 17, UA consistent with UTI. U/s was negative for right LE DVT. 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 No acute distress, cooperative HEENT: NCAT, No JVD noted. Mucosa moist. Pupils are equal and reactive to light bilaterally Cardiovascular: Normal S1 and S2. Regular rate and rhythm. Respiratory: Lungs are clear to auscultation bilaterally. No wheezing or crackles heard. Abdomen: Soft, nontender, not distended, normal bowel sounds. Skin: right lower extremity noted to have non purulent cellulitis, erythema, warmth, tender. Poorly demarcated margins Musculoskeletal: No gross injuries. Able to move all 4 extremities. Mild edema in RLE Neuro: Alert and oriented x3. No focal neuro deficits. Psych: Normal affect and mood Results: Labs 09/26/25 04:50 09/26/25 04:50 Labs: Short CBC 09/25/25 Range/Units 18:57 WBC 17.0 H (3.6-11.0) Thou/mm3 Hgb 13.8 (12.0-16.0) g/dL Hct 38.6 (36.0-46.0) % Plt Count 210 (140-440) Thou/mm3 BMP 09/25/25 18:57 Sodium 138 Potassium 3.5 Chloride 103 Carbon Dioxide 24.1 BUN < 5 L Creatinine 0.6 Glucose 121 H Calcium 9.2 Liver Function 09/25/25 Range/Units 18:57 Total Bilirubin 0.6 (0.3-1.2) mg/dL AST 22 (0-34) U/L ALT 18 (10-49) U/L Alkaline Phosphatase 37 L (46-116) U/L Albumin 4.6 (3.5-5.0) gm/dL Urine 09/25/25 Range/Units 19:29 Urine Color Yellow (Lt Yel-Yel) Urine Clarity Clear (Clear/Hazy) Urine pH 5.5 (5.0-7.0) Ur Specific [place] 1.026 (1.001-1.035) Urine Protein 1+ A (Neg - Trace) Urine Glucose (UA) Negative (Negative) Quality Measures Quality Measures VTE prophylaxis Medications Home Medications and Allergies Home Medications ?Medication ?Instructions ?Recorded ?Confirmed ?Type folic acid 1 mg tablet 1 mg PO DAILY 09/25/25 09/25/25 History vit no.95-ferrous 1 tab PO DAILY 09/25/25 09/25/25 History fumarate 28 mg-folic acid 800 mcg tablet () Allergies Allergy/AdvReac Type Severity Reaction Status Date / Time No Known Allergies Allergy Verified 09/25/25 18:30 Visit Medications Acetaminophen (Acetaminophen 325 Mg Tablet) 650 mg PO Q6H PRN PRN Reason: Fever >101.5 or pain Stop: 10/25/25 22:15 Enoxaparin Sodium (Enoxaparin Sod Inj 40 Mg/0.4 Ml Syringe) 40 mg SC QDAY PASCUAL Stop: 10/10/25 08:59 Ceftriaxone Sodium/Dextrose (Rocephin/D5w 1gm Iv Premix) 1 gm in 50 mls @ 100 mls/hr IV QDAY PASCUAL Stop: 10/02/25 22:14 Last Infusion: 09/25/25 23:08 Dose: Infused Discontinued Medications Acetaminophen (Acetaminophen 500 Mg Tablet) 1,000 mg PO X1 ONE Stop: 09/25/25 18:49 Last Admin: 09/25/25 19:31 Dose: 1,000 mg Sodium Chloride (Ns) 1,000 mls @ 999 mls/hr IV .Q1H1M ONE Stop: 09/25/25 19:48 Last Infusion: 09/25/25 20:51 Dose: Infused Cefazolin Sodium (Ancef 2gm Ivpb) 2 gm in 100 mls @ 200 mls/hr IV X1 ONE Stop: 09/25/25 19:17 Last Infusion: 09/25/25 20:22 Dose: Infused Sodium Chloride (Ns) 1,000 mls @ 999 mls/hr IV .Q1H1M ONE Stop: 09/25/25 21:08 Last Infusion: 09/25/25 21:58 Dose: Infused Assessment & Plan Plan Sayra Lopez is 29 yr female with no significant PMH. She has had four vaginal deliveries in the past. Currently is 14 weeks . Presenting with chief complaint of right lower extremity pain that started 1 to 2 days ago. No DVT, findings consistent with cellulitis. Start IV antibiotics in setting of UTI and cellulitis. #Cellulitis #UTI Patient first started experiencing cramping sensation in her leg and painful area of erythema. U/s was negative for right LE DVT. Area has progressively worsened with spreading erythema, increasing tenderness, and warmth. No symptoms of dysuria. Positive leukocyte esterase, WBC 24 on UA. Meets SIRS 4/4, qsofa 0 indicating low mortality risk, no evidence of end organ damage. No indication for MRSA coverage at this time as cellulitis nonpurulent, no MRSA colonization or infection in past, no recent abx use. -IV ceftriaxone 1g daily -Urine cultures pending -Blood cultures pending -Patient should repeat UA in 2 weeks to ensure infection has cleared -TSH #14 weeks gestation Follows with specialist from [facility]. Last OBgyn check few days ago. -continue folic acid 1g daily Health maintenance: Dispo: medsurg, cellulitis FEN: regular DVT prophylaxis:Lovenox CODE STATUS: Full code The patient's management plan was discussed with my attending physician Dr. Brady. Юлия Black, PGY-2 Attending Provider Attestation/Addendum After examination of the patient and review of the clinical data I feel that this patient needs admission to the hospital for further treatment/evaluation. Plan of care discussed with patient and is in agreement. I Mich Brady MD, attest that I was physically present for clark portions of evaluation, and examined patient, labs and imagings and plan of care were discussed with IM residents team, and I agree with the findings and plans documented above.
[2025-09-26 04:00] VITALS: BP 100/75; PULSE 110; RESP 19; TEMP 36.6; O2SAT 99
[2025-09-26 06:43] LABS: Anion Gap 10 (7-16); BUN/Creatinine Ratio 10 Ratio (12-20); Blood Urea Nitrogen < 5 mg/dL (9-23); Calcium 8.7 mg/dL (8.3-10.6); Carbon Dioxide 25.5 mMol/L (20.0-31.0); Chloride 106 mMol/L (98-107); Creatinine (Component) 0.5 mg/dL (0.6-1.3); Estimated Creatinine Clearance 343.7 mL/min (>60); Glucose 101 mg/dL (74-106); Osmolality,Calculated 278 (275-295); Potassium 3.8 mMol/L (3.4-5.1); Sodium 141 mMol/L (136-145); Thyroid Stimulating Hormone 0.71 uIU/mL (0.55-4.78); eGFR > 60 See Note
[2025-09-26 07:47] LABS: Basophils # (Auto) 0.0 Thou/mm3 (0.0-0.2); Basophils % (Auto) 0 % (0-2.5); Eosinophils # (Auto) 0.2 Thou/mm3 (0.0-0.5); Eosinophils % (Auto) 1 % (0-10); Hematocrit 35.2 % (36.0-46.0); Hemoglobin 12.4 g/dL (12.0-16.0); Immature Granulocytes Auto 0.06 Thou/mm3 (0.00-0.00); Lymphocytes # (Auto) 0.4 Thou/mm3 (1.0-4.8); Lymphocytes % (Auto) 3 % (10-50); Mean Corpuscular HGB Conc 35.2 g/dl (31.0-37.0); Mean Corpuscular Hemoglobin 31.0 pg (25.0-35.0); Mean Corpuscular Volume 88 fL (80-100); Monocytes # (Auto) 0.6 Thou/mm3 (0.0-0.8); Monocytes % (Auto) 3 % (0-12); Neutrophils # (Auto) 14.8 Thou/mm3 (1.8-7.7); Neutrophils % (Auto) 92 % (37-80); Nucleated Red Blood Cell # 0.00 Thou/mm3 (0.00-0.00); Nucleated Red Blood Cell % 0 /100 WBC (0); Platelet Count 188 Thou/mm3 (140-440); RDW Standard Deviation 42.4 fL (36.4-46.3); Red Blood Count 4.00 Miln/mm3 (4.00-5.20); White Blood Count 16.0 Thou/mm3 (3.6-11.0)
[2025-09-26 08:02] VITALS: BP 108/68; PULSE 83; RESP 16; TEMP 36.8; O2SAT 95
[2025-09-26] MEDS: ENOXAPARIN SOD INJ 40 MG/0.4 ML SYRINGE SC (08:19)
[2025-09-26] MEDS: cefTRIAXone/D5w 1gm IV premix 1 GM/50 ML BAG IV (08:19)
[2025-09-26] MEDS: FOLIC ACID 1 MG TABLET PO (08:19)
[2025-09-26 11:20] VITALS: BP 117/63; PULSE 84; RESP 16; TEMP 36.3; O2SAT 92
--- NOTE | 2025-09-26 11:45 | PC.SS ---
PACKAGE WINDER conducted bedside contact with the patient conduct initial assessment and to discuss discharge planning.? Patient confirmed demographic information.? Patient resides at home with partner, Compa Barrios .? Patient is employed at [employer].? Patient does not utilize any form of DME to assist with ambulation.? Patient does not utilize home oxygen.? Patient describes the ability to complete ADL?s independently.? Patient identified partner, Compa Barrios; as medical surrogate decision maker.? Patient?s PCP is Minerva Snyder.? Patient does not participate with dialysis.? Patient is 14 weeks . OB is [facility].? Patient utilizes [facility] for medication services.? Plan is for the patient to return home at the time of discharge.? Family will provide transportation on behalf of the patient.? No further discharge needs identified by the patient.? No further intervention required at this time, social work lecturer will be available to address any further concerns.? Next of Kin: Compa Barrios D/C Plan: Home
--- NOTE | 2025-09-26 11:48 | PC.SS ---
PULLMAN CAR REPAIRER informed bedside nurse request to obtain OB consult during current admission due to being 14 weeks and prescribed IV antibiotics. Patient inquiring about possible side effects. Bedside nurse to reach out to attending to relay request. PULLMAN CAR REPAIRER updated patient.
--- NOTE | 2025-09-26 14:07 | PD.RESPRO ---
Documentation for date of: 09/26/25 Subjective Subjective Interval history: Yesterday, patient spiked a fever of 100.9 between 6:30 PM and 7:30 PM. Patient was examined at bedside; they appear A&Ox3 and in NAD. Vitals/labs today significant for WBC 17.0->16.0, procalcitonin 1.23, TSH WNL 0.71. UA was suggestive of UTI, venous Doppler US and tibia/fibula XR came back negative. Physical exam notable for warm, red, and swollen appearing right leg with some erythematous ascension as well as some erythema of the right thigh area. Patient's presentation of erythematous, warm, and swollen right leg with negative venous Doppler US in the setting of febrile episode and expansion of affected area is concerning for cellulitis as the working diagnosis. A CT of the right leg was considered but decided against due to risk of exposing the fetus to radiation. OBGYN (Dr. Lange) was consulted as patient requested evaluation of the fetus due to concerns that her recent antibiotic use may have negatively affected it. In the meantime, patient will continue Rocephin IV for her suspected infectious presentation. Exam Vital Signs Temp Pulse Resp BP Pulse Ox O2 Del Method 97.3 F 84 16 117/63 92 L Room Air 09/26/25 11:20 09/26/25 11:20 09/26/25 11:20 09/26/25 11:20 09/26/25 11:20 09/26/25 11:20 Narrative Exam General: Alert and oriented x3. No acute distress, cooperative HEENT: NCAT, No JVD noted. Mucosa moist. Pupils are equal and reactive to light bilaterally Cardiovascular: Normal S1 and S2. Regular rate and rhythm. Respiratory: Lungs are clear to auscultation bilaterally. No wheezing or crackles heard. Abdomen: Soft, nontender, not distended, normal bowel sounds. Skin: Right lower extremity noted to have non purulent cellulitis, erythema, warmth, tender. Poorly demarcated margins, seems to have spread to back of right calf as well as right upper thigh. Musculoskeletal: No gross injuries. Able to move all 4 extremities. Mild edema in RLE Neuro: Alert and oriented x3. No focal neuro deficits. Psych: Normal affect and mood Objective Labs 09/27/25 05:30 09/27/25 05:30 Labs: Laboratory Results - last 24 hr 09/25/25 09/25/25 09/26/25 18:57 19:29 04:50 WBC 17.0 H 16.0 H RBC 4.46 4.00 Hgb 13.8 12.4 Hct 38.6 35.2 L MCV 87 88 MCH 30.9 31.0 MCHC 35.8 35.2 RDW Std Deviation 40.0 42.4 Plt Count 210 188 Neut % (Auto) 96 H 92 H Lymph % (Auto) 1 L 3 L [place] % (Auto) 2 3 Eos % (Auto) 0 1 Baso % (Auto) 0 0 Neut # (Auto) 16.3 H 14.8 H Lymph # (Auto) 0.2 L 0.4 L [place] # (Auto) 0.3 0.6 Eos # (Auto) 0.1 0.2 Baso # (Auto) 0.0 0.0 Immature Gran # (Auto) 0.05 H 0.06 H Absolute Nucleated RBC 0.00 0.00 Immature Gran % 0 0 Nucleated RBC % 0 0 ESR 11 Sodium 138 141 Potassium 3.5 3.8 Chloride 103 106 Carbon Dioxide 24.1 25.5 Anion Gap 11 10 BUN < 5 L < 5 L Creatinine 0.6 0.5 L Estim Creat Clear Calc 170.1 343.7 eGFR > 60 > 60 BUN/Creatinine Ratio 8 L 10 L Glucose [address] Glu mg/dL 97 Hemoglobin A1c 5.0 Calculated Osmolality 273 L 278 Lactic Acid 1.4 Calcium 9.2 8.7 Corrected Calcium 9.2 Total Bilirubin 0.6 AST 22 ALT 18 Alkaline Phosphatase 37 L C-Reactive Prot, Quant 3.0 H Total Protein 6.8 Albumin 4.6 Globulin 2.2 L Albumin/Globulin Ratio 2.1 Procalcitonin 1.23 H TSH 0.71 Ur Collection Type Clean Catch Urine Color Yellow Urine Clarity Clear Urine pH 5.5 Ur Specific [place] 1.026 Urine Protein 1+ A Urine Glucose (UA) Negative Urine Ketones 2+ A Urine Blood Trace Urine Nitrite Negative Urine Bilirubin Negative Urine Urobilinogen (Auto) 2.0 Ur Leukocyte Esterase Positive Urine RBC 10 H Urine WBC 24 H Ur Squamous Epith Cells 4 Urine Bacteria Rare Ur Culture Indicated? Yes Urine Opiates Screen Negative Urine Fentanyl Screen Negative Ur Barbiturates Screen Negative U Amphetamin/Meth Scrn Negative U Benzodiazepines Scrn Negative U Cocaine Metab Screen Negative U Marijuana (THC) Screen Negative Quality Measures Quality Measures none Assessment & Plan Assessment Current Active Medications: Generic Name Dose Route Start Last Admin Trade Name Neel PRN Reason Stop Dose Admin Acetaminophen 650 mg 09/25/25 22:16 Acetaminophen 325 Mg Tablet PO 10/25/25 22:15 Q6H PRN Fever >101.5 or pain Enoxaparin Sodium 40 mg 09/26/25 09:00 09/26/25 08:19 Enoxaparin Sod Inj 40 Mg/0.4 Ml Syringe SC 10/10/25 08:59 40 mg QDAY PASCUAL Administration Folic Acid 1 mg 09/26/25 09:00 09/26/25 08:19 Folic Acid 1 Mg Tablet PO 10/26/25 08:59 1 mg DAILY PASCUAL Administration Ceftriaxone Sodium/Dextrose 1 gm in 50 mls @ 100 mls/hr 09/25/25 22:15 09/26/25 08:19 Rocephin/D5w 1gm Iv Premix IV 10/02/25 22:14 100 mls/hr QDAY PASCUAL Administration Plan Sayra Lopez is a 29 yr female with no significant PMH. She has had four vaginal deliveries in the past. Currently is 14 weeks . Presenting with chief complaint of right lower extremity pain that started 1 to 2 days ago. No DVT, findings consistent with cellulitis. Start IV antibiotics in setting of UTI and cellulitis. #Cellulitis #UTI #Leukocytosis Patient first started experiencing cramping sensation in her leg and painful area of erythema. U/s was negative for right LE DVT. Area has progressively worsened with spreading erythema, increasing tenderness, and warmth. No symptoms of dysuria. Positive leukocyte esterase, WBC 24 on UA. Meets SIRS 4/4, qsofa 0 indicating low mortality risk, no evidence of end organ damage. No indication for MRSA coverage at this time as cellulitis nonpurulent, no MRSA colonization or infection in past, no recent abx use. Dx: -09/25 tibia/fibula XR ordered, negative for fracture or osteomyelitis -09/25 urine cultures ordered, showed ___ -09/25 blood cultures ordered, showed ___ Rx: -IV Rocephin 1g daily #14 weeks gestation Follows with specialist from [facility]. Last OBGYN check was a few days ago. Dx: -09/26 ultrasound ordered, showed viable intrauterine gestation with cardiac motion of 155 bpm Rx: -Continue folic acid 1g daily - vitamin 1 tab daily -OBGYN (Dr. Lange) consulted due to request by patient to be evaluated by OBGYN, appreciate recommendations Hospital Management: Disposition: Medsurg, Cellulitis Diet: Regular GI Prophylaxis: None Bowel Prophylaxis: None DVT Prophylaxis: Lovenox CODE STATUS: Full Code I have examined the patient and conferred with my attending, Dr. Falcon, and my senior resident, Dr. Perdue, regarding them. Derick Soriano, DO PGY-1 Internal Medicine Attending Provider Attestation/Addendum I have examined the patient, reviewed labs and imaging findings, discussed the case with the resident(s), and reviewed entered orders. I agree with the plan of care as outlined in this note, with these additional summaries/recommendations: Patient seen at bedside. Patient admitted overnight for soft tissue infection. She was seen at a neighboring hospital yesterday and diagnosed with cellulitis/erysipelas and discharged home with antibiotics and told to return to the emergency room if symptoms worsen. Patient went home and reports increasing pain and worsening rash and presented to [facility] emergency room. Patient does appear to have erysipelas/cellulitis which is well demarcated, erythematous, raised, and warm to touch. Continue IV antibiotics, antipyretics, and anti-inflammatory medications. Ultrasound at neighboring hospital was negative for deep vein thrombosis and ultrasound also negative in house. Low suspicion for contact dermatitis and patient denies bug bites. She denies itchiness and low suspicion for lichen simplex or pruritic urticarial papules and plaques of . Low suspicion for gout. Low suspicion for vasculitis. Follow-up blood culture results when available. If no improvement we will consider CT of the leg although we will discuss risks and benefits of radiation before proceeding. Continue IV Rocephin. Patient is 14 weeks gestation and will establish care with CERTIFIED NURSE PRACTITIONER. Patient updated on the plan and agreement. All questions answered to satisfaction. Please see residents note for additional details and management. Dr. Ezekiel MD
--- NOTE | 2025-09-26 14:47 | XR_ITS ---
EXAMINATION: age Limited TECHNIQUE: Limited transabdominal sonographic images pelvis INDICATIONS: Clinical confirmation viability Date and time: September 26, 2025, 1457 hours FINDINGS: Viable intrauterine gestation: Cardiac motion 155 bpm IMPRESSION: Cardiac motion 155 bpm
--- NOTE | 2025-09-26 15:22 | PD.GYNCONS ---
CONTACT AND SERVICE [employer]ERKS SUPERVISOR HPI Data of Consult Requesting Physician: Teo Gruber MD Primary Care Provider: Colleen Mccarthy PA-C([facility] Consult Narrative History of present illness: Sayra is a 29yo with SIUP at approx 14wk admitted last night for treatment of right lower extremity cellulitis in the setting of fever and elevated WBC count. Receiving IV ceftriaxone. Negative DVT doppler testing and Tibia/Fibula X-ray. 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 Then felt like a jabari horse was occurring. No bite or wound prior to cellulitis starting. The redness then began as a band just above the ankle before starting to ascend up the leg. There are new areas of redness (linear pattern) on the inner/upper thigh. Fever last night, none since. She notes having spotting in early , came to [facility] for ultrasound 07/31 and no pole seen within intra-uterine GS. She returned 08/06 and there was viable 6wk SIUP noted. No bleeding since then. She has no obstetric complaints currently. She has established PNC in [facility] and had OB visit recently. No issues with other than as noted above. PMHx: obesity OBhx: at term x4. PPH with 3rd delivery, had D&C but no transfusion needed. Had uncomplicated 4th , but they did ppx D&C(?) afterwards per patient. Last delivery 3 years ago. GynHx: no STIs or abnormal pap PSHx: D&C x2 and wisdom teeth Family Hx: HTN, DM, father from colon cancer Meds: PNV Allergies: NKDA Social Hx: works as an MA at [employer], denies tobacco/ETOH/illicit drug use cc:: cc: Teo Gruber MD Review of Systems Review of Systems Narrative Review of Systems: Review of Systems Systems Reviewed: All systems reviewed, normal except as documented Constitutional Constitutional: Denies body ache(s), Denies headache(s) ENT Ears, Nose, Mouth, and Throat: Denies headache(s) and Denies vertigo Cardiovascular Cardiovascular: Denies chest pain, Denies palpitations, Denies dyspnea and Denies syncope Respiratory Respiratory: Denies cough, Denies dyspnea Gastrointestinal Gastrointestinal: Denies nausea and Denies vomiting Neurologic Neurologic: Denies convulsions, Denies headache(s), Denies other visual disturbances, Denies syncope and Denies vertigo Meds Home Medications and Allergies Home Medications ?Medication ?Instructions ?Recorded ?Confirmed ?Type folic acid 1 mg tablet 1 mg PO DAILY 09/25/25 09/25/25 History vit no.95-ferrous 1 tab PO DAILY 09/25/25 09/25/25 History fumarate 28 mg-folic acid 800 mcg tablet () Allergies Allergy/AdvReac Type Severity Reaction Status Date / Time No Known Allergies Allergy Verified 09/25/25 18:30 Exam - [employer]TA[employer] AND [employer]ICE [employer]ERKS SUPERVISOR Vital Signs Temp Pulse Resp BP Pulse Ox O2 Del Method 97.3 F 84 16 117/63 92 L Room Air 09/26/25 11:20 09/26/25 11:20 09/26/25 11:20 09/26/25 11:20 09/26/25 11:20 09/26/25 11:20 Narrative Exam General: well developed, well nourished, no acute distress, conversant Cardiac: normal heart rate Lungs: breathing without distress Abdomen: soft, non-tender, no rebound or guarding Extremities: erythema of RLE starts near ankle and extends upwards, skips mid-leg and there is some linear erythema on the inner/upper thigh. Calf is tightly edematous. Thigh supple. LLE normal. No obvious vaginal discharge. Labia majora are symmetric without swelling. CONTACT AND SERVICE [employer]ERKS SUPERVISOR - Results Labs 09/26/25 04:50 09/26/25 04:50 Labs: Short CBC 09/25/25 09/26/25 Range/Units 18:57 04:50 WBC 17.0 H 16.0 H (3.6-11.0) Thou/mm3 Hgb 13.8 12.4 (12.0-16.0) g/dL Hct 38.6 35.2 L (36.0-46.0) % Plt Count 210 188 (140-440) Thou/mm3 BMP 09/25/25 09/26/25 18:57 04:50 Sodium 138 141 Potassium 3.5 3.8 Chloride 103 106 Carbon Dioxide 24.1 25.5 BUN < 5 L < 5 L Creatinine 0.6 0.5 L Glucose 121 H 101 Calcium 9.2 8.7 Liver Function 09/25/25 Range/Units 18:57 Total Bilirubin 0.6 (0.3-1.2) mg/dL AST 22 (0-34) U/L ALT 18 (10-49) U/L Alkaline Phosphatase 37 L (46-116) U/L Albumin 4.6 (3.5-5.0) gm/dL Urine 09/25/25 Range/Units 19:29 Urine Color Yellow (Lt Yel-Yel) Urine Clarity Clear (Clear/Hazy) Urine pH 5.5 (5.0-7.0) Ur Specific [place] 1.026 (1.001-1.035) Urine Protein 1+ A (Neg - Trace) Urine Glucose (UA) Negative (Negative) Impressions Impression: INDICATIONS: Clinical confirmation viability Date and time: September 26, 2025, 1457 hours FINDINGS: Viable intrauterine gestation: Cardiac motion 155 bpm IMPRESSION: Cardiac motion 155 bpm Assessment and Plan Assessment and plan (1) Cellulitis: Status: Acute Assessment and plan: Sayra is a 29yo with SIUP at approx 14wk admitted last night for treatment of right lower extremity cellulitis in the setting of fever and elevated WBC count. DVT doppler and X-Ray tibia/fibula negative. Vitals wnl currently (last fever at 19:31 on 09/25), benign exam with exception of RLE skin findings and edema. WBC count decreased from 17 to 16. UA showed likely early UTI. Blood and urine cultures pending. Reassuring assessment. Plan: -Continue IV abx therapy -Awaiting blood and urine cultures -Limited ultrasound performed while I was at bedside showed very active fetus with +FCA. I provided reassurance to patient. -PNV and folic acid -If CT scan is deemed indicated, it should NOT be withheld for concerns related to exposure to radiation. Radiologist should be informed of status and CT scan tailored to best protect fetus -Patient has OB care in [facility] and can follow up as previously scheduled once discharged (2) 14 weeks gestation of : Status: Acute (1) Cellulitis Qualifiers: Site of cellulitis of extremity: lower extremity Laterality: right Site of cellulitis: extremity Qualified Code(s): L03.115 - Cellulitis of right lower limb
[2025-09-26 15:35] VITALS: BP 116/72; PULSE 107; RESP 20; TEMP 37.2; O2SAT 100
--- NOTE | 2025-09-26 18:16 | XR_ITS ---
Examination: CT right lower leg, without contrast. 2-D sagittal reconstructions. 2-D coronal reconstructions. 3-D reconstructions. Date and time of exam: September 26, 2025, 195 hours INDICATIONS: Right lower leg redness swelling and pain beginning today CTDI: vol (mGy): 11.4 DLP: (mGycm): 780 Technique: Multiple 1.25 mm axial sections of the right lower leg without intravenous contrast have been obtained. 2-D sagittal and coronal reconstructions have been obtained. 3-D reconstructions have been obtained. Low dose protocols were performed. One or more of the following dose reduction techniques were used; automated exposure control, adjustment of the mA and/or KV according to patient size, use of iterative reconstruction technique. Findings: Distal femur femoral condyles intact Tibia fibula intact with no cortical bone destruction or endosteal scalloping Mild edema in the subcutaneous fatty tissue of the lower leg No soft tissue abscess No foreign body IMPRESSION: Cellulitis pattern in the subcutaneous fatty tissue lower leg Negative for soft tissue abscess Negative for osteomyelitis
--- NOTE | 2025-09-26 18:31 | XR_ITS ---
EXAMINATION: Ultrasound soft tissue right lower extremity TECHNIQUE: Grayscale sonographic images soft tissue right lower extremity Date and time: September 26, 2025, 1906 hours INDICATIONS: Right leg swelling and pain redness today spreading from the right thigh down to the ankle FINDINGS: Edema cellulitis in the soft tissue inner right leg extending from the thigh to the ankle No localized soft tissue abscess IMPRESSION: Findings most consistent with cellulitis, however, consider CT soft tissue lower extremity post contrast follow-up
--- NOTE | 2025-09-26 19:44 | PC.NURSE ---
to CT scan per cindy accompanied by courtesy car driver.
[2025-09-26 20:00] VITALS: BP 122/80; PULSE 114; RESP 18; TEMP 37.3; O2SAT 99
[2025-09-26] MEDS: CLINDAMYCIN/NS 600 MG IVPB 600 MG/50 ML BAG 100 MG IV (20:17)
--- NOTE | 2025-09-26 20:25 | PC.NURSE ---
increased redness to RLE and right thigh marked with pen.
--- NOTE | 2025-09-26 22:10 | PC.NURSE ---
called and notified ob staff re order for fht monitor Qshift.
[2025-09-26] MEDS: ACETAMINOPHEN 325 MG TABLET 650 MG PO (22:15)
--- NOTE | 2025-09-26 22:22 | PC.NURSE ---
measurement RLE circumference: Right calf=47 cm. Right tomlin=29 cm.
[2025-09-27] VITALS (7 sets, daily range): BP systolic 91–117; BP diastolic 55–74; PULSE 87–100; RESP 17–19; TEMP 36.2–37.3; O2SAT 95–99
[2025-09-27] MEDS: CLINDAMYCIN/NS 600 MG IVPB 600 MG/50 ML BAG 100 MG IV (05:29)
[2025-09-27] MEDS: ACETAMINOPHEN 325 MG TABLET 650 MG PO (05:40)
--- NOTE | 2025-09-27 06:05 | PC.NURSE ---
seen and examined by Dr. Vasquez, at bedside.
[2025-09-27 06:36] LABS: Anion Gap 10 (7-16); BUN/Creatinine Ratio 13 Ratio (12-20); Blood Urea Nitrogen < 5 mg/dL (9-23); Calcium 9.0 mg/dL (8.3-10.6); Carbon Dioxide 24.8 mMol/L (20.0-31.0); Chloride 105 mMol/L (98-107); Creatinine (Component) 0.4 mg/dL (0.6-1.3); Estimated Creatinine Clearance 429.6 mL/min (>60); Glucose 79 mg/dL (74-106); Osmolality,Calculated 275 (275-295); Potassium 3.0 mMol/L (3.4-5.1); Sodium 140 mMol/L (136-145); eGFR > 60 See Note
[2025-09-27 06:38] LABS: Basophils # (Auto) 0.0 Thou/mm3 (0.0-0.2); Basophils % (Auto) 0 % (0-2.5); Eosinophils # (Auto) 0.2 Thou/mm3 (0.0-0.5); Eosinophils % (Auto) 2 % (0-10); Hematocrit 34.1 % (36.0-46.0); Hemoglobin 12.0 g/dL (12.0-16.0); Immature Granulocytes Auto 0.05 Thou/mm3 (0.00-0.00); Lymphocytes # (Auto) 1.0 Thou/mm3 (1.0-4.8); Lymphocytes % (Auto) 8 % (10-50); Mean Corpuscular HGB Conc 35.2 g/dl (31.0-37.0); Mean Corpuscular Hemoglobin 30.7 pg (25.0-35.0); Mean Corpuscular Volume 87 fL (80-100); Monocytes # (Auto) 0.4 Thou/mm3 (0.0-0.8); Monocytes % (Auto) 4 % (0-12); Neutrophils # (Auto) 9.9 Thou/mm3 (1.8-7.7); Neutrophils % (Auto) 86 % (37-80); Nucleated Red Blood Cell # 0.00 Thou/mm3 (0.00-0.00); Nucleated Red Blood Cell % 0 /100 WBC (0); Platelet Count 169 Thou/mm3 (140-440); RDW Standard Deviation 41.2 fL (36.4-46.3); Red Blood Count 3.91 Miln/mm3 (4.00-5.20); White Blood Count 11.5 Thou/mm3 (3.6-11.0)
--- NOTE | 2025-09-27 08:03 | PC.NURSE ---
09/27/2025 [id number], [id number] AT PATIENT BEDSIDE ASSESSING FHR NOTED BETWEEN 144-146 BPM, AT MIDLINE FOUR FINGERS BELOW UMBILICUS VIA HANDHELD DOPPLER. FOB AT BEDSIDE, FHR, REPORTED TO PRIMARY NURSE LAUREL MORENO.
[2025-09-27 08:12] LABS: Lactate (Lactic Acid) 0.8 mMol/L (0.4-2.0)
[2025-09-27] MEDS: ENOXAPARIN SOD INJ 40 MG/0.4 ML SYRINGE SC (09:22)
[2025-09-27] MEDS: POTASSIUM CHLORIDE 10% 20 MEQ/15 ML UDC 40 MEQ PO (09:22)
[2025-09-27] MEDS: PRENATAL VITAMIN/FE FUM/FA TABLET 1 TAB PO (09:22)
[2025-09-27] MEDS: cefTRIAXone/D5w 1gm IV premix 1 GM/50 ML BAG IV (09:22)
[2025-09-27] MEDS: FOLIC ACID 1 MG TABLET PO (09:22)
--- NOTE | 2025-09-27 09:49 | PD.IDPROG ---
Subjective Subjective Interval history: cellulitis and . cx neg improved on ancef and related agents Exam Vital Signs Temp Pulse Resp BP Pulse Ox O2 Del Method 98.0 F 87 18 107/74 95 Room Air 09/27/25 04:00 09/27/25 04:00 09/27/25 04:00 09/27/25 04:00 09/27/25 04:00 09/27/25 04:00 Objective - Internal Medicine Labs 09/27/25 05:30 09/27/25 05:30 Labs: Laboratory Results - last 24 hr 09/27/25 09/27/25 05:30 08:00 WBC 11.5 H RBC 3.91 L Hgb 12.0 Hct 34.1 L MCV 87 MCH 30.7 MCHC 35.2 RDW Std Deviation 41.2 Plt Count 169 Neut % (Auto) 86 H Lymph % (Auto) 8 L [place] % (Auto) 4 Eos % (Auto) 2 Baso % (Auto) 0 Neut # (Auto) 9.9 H Lymph # (Auto) 1.0 [place] # (Auto) 0.4 Eos # (Auto) 0.2 Baso # (Auto) 0.0 Immature Gran # (Auto) 0.05 H Absolute Nucleated RBC 0.00 Immature Gran % 0 Nucleated RBC % 0 Sodium 140 Potassium 3.0 L D Chloride 105 Carbon Dioxide 24.8 Anion Gap 10 BUN < 5 L Creatinine 0.4 L Estim Creat Clear Calc 429.6 eGFR > 60 BUN/Creatinine Ratio 13 Glucose 79 Calculated Osmolality 275 Lactic Acid 0.8 Calcium 9.0 Assessment & Plan A&P Narrative cellulitis and f/u with juvenile probation officer. po rx ok for now but with 533 lb size. will push dose a bit on the keflex po and suggest 7-10 d overall and f/u with ob at their clinic. leg elevation and edema control can help too will see mnday if she remains in house. if pos for screens then test spouse and if he is neg, then call me for other approaches. if neg, then home later on ok or over weekend Time Spent With Patient Time: Total time spent is greater than 50% in coordination of care (as documented) at patient's floor/unit and/or counseling patient:
[2025-09-27 10:33] LABS: HIV (1&2) Antibody Rapid Non-Reactive
[2025-09-27 10:51] LABS: Hepatitis C Antibody Non Reactive (Non React)
[2025-09-27 10:56] LABS: Syphilis Nonreactive (Nonreactive)
--- NOTE | 2025-09-27 11:27 | ESCONSULT_ITS ---
RE: CARRIE ORTEGA : 1995 DATE OF CONSULTATION: 09/27/2025 REFERRING PHYSICIAN: Mich Brady MD. REASON FOR CONSULTATION: Cellulitis of the right leg with negative cultures in a heavy set lady who is . HISTORY OF PRESENT ILLNESS: Patient is with her 5th child. She has never had a surgery of any kind, apparently all vaginal deliveries, and she is not diabetic. ALLERGIES: NOT KNOWN. IMMUNIZATIONS: Last tetanus is not known. She does not take a flu shot every year, has had 1 COVID vaccine, has had no pneumococcal vaccine, does not recall RSV vaccine as well. FAMILY HISTORY: Positive for his father having prostate cancer, diabetes, hypertension. SOCIAL HISTORY: She lives with her and is 5, para 5. I did ask her where the children are. She denies any significant allergies or anybody at home with other health problems or smoking. Her exam shows some lesions c/w cellulitis with some skip lesions suggesting more of a streptococcal process with lymphangitic spread. She is heavy set so that makes sense. Also, doxycycline is somewhat problematic with her as she is 14 weeks along. I will go ahead and screen her for HIV, hep C, and syphilis. She may go home on oral therapy over the weekend at your discretion. I will use a big dose of Keflex as a precaution. DT: 10:43:18 TT: 11:26:00 Ref: [id number] - TID: [id number] MTDD
--- NOTE | 2025-09-27 14:53 | PC.SS ---
Rounding: IV ABX for cellulitis, consult DC plan home
--- NOTE | 2025-09-27 17:47 | ESPR_ITS ---
<Statement entered by Jhoana Perdue MD - 09/28/25 14:31> Patient was seen and examined by me personally. I have directly supervised and reviewed documentation by the team resident and agree with its findings with any exceptions or additional findings as below. Plan of care was discussed with the attending, Dr. Falcon. Jhoana Perdue, PGY-3 Documentation for date of: 09/27/25 Subjective Subjective Interval history: No overnight events. Patient was examined at bedside; they appear A&Ox3 and in NAD. Vitals/labs today significant for WBC 16.0->11.5, potassium 3.8->3.0. Physical exam notable for further spread of the right leg cellulitis proximally with satellite lesions at the thigh. Although patient's leukocytosis down-trended today, her cellulitis continues to worsen despite continued antibiotic treatment with Rocephin 1 g IV qD and MRSA coverage with clindamycin 600 mg IV qD. Patient herself endorses more pain upon moving her leg off of the bed. 09/[address] and ultrasound showed findings consistent with cellulitis with no signs of abscess or osteomyelitis. ID has been consulted and patient has been switched to Keflex 1000 mg PO QID per their recommendations. Work-up to rule out hepatitis C, HIV 1&2, and syphilis have also been ordered. At this time, there is still concern for patient's clinical picture developing into acute compartment syndrome or possibly necrotizing fasciitis. General Surgery (Dr. Redd) has already been consulted and recommends immediate transfer to a tertiary care facility should patient's cellulitis develop complications such as the above. Exam Vital Signs Temp Pulse Resp BP Pulse Ox O2 Del Method 97.5 F 100 18 117/72 98 Room Air 09/27/25 16:00 09/27/25 16:00 09/27/25 16:00 09/27/25 16:00 09/27/25 16:00 09/27/25 16:00 Narrative Exam General: Alert and oriented x3. No acute distress, cooperative HEENT: NCAT, No JVD noted. Mucosa moist. Pupils are equal and reactive to light bilaterally Cardiovascular: Normal S1 and S2. Regular rate and rhythm. Respiratory: Lungs are clear to auscultation bilaterally. No wheezing or crackles heard. Abdomen: Soft, nontender, not distended, normal bowel sounds. Skin: Right lower extremity noted to have non purulent cellulitis, erythema, warmth, tender. Poorly demarcated margins, seems to have spread to back of right calf as well as right upper thigh. Cellulitis has now worsened from the day prior due to exceeding regions demarcated by black ink yesterday. Musculoskeletal: No gross injuries. Able to move all 4 extremities. Mild edema in RLE Neuro: Alert and oriented x3. No focal neuro deficits. Psych: Normal affect and mood Objective Labs 09/28/25 05:27 09/28/25 05:27 Labs: Laboratory Results - last 24 hr 09/27/25 09/27/25 05:30 08:00 WBC 11.5 H RBC 3.91 L Hgb 12.0 Hct 34.1 L MCV 87 MCH 30.7 MCHC 35.2 RDW Std Deviation 41.2 Plt Count 169 Neut % (Auto) 86 H Lymph % (Auto) 8 L [place] % (Auto) 4 Eos % (Auto) 2 Baso % (Auto) 0 Neut # (Auto) 9.9 H Lymph # (Auto) 1.0 [place] # (Auto) 0.4 Eos # (Auto) 0.2 Baso # (Auto) 0.0 Immature Gran # (Auto) 0.05 H Absolute Nucleated RBC 0.00 Immature Gran % 0 Nucleated RBC % 0 Sodium 140 Potassium 3.0 L D Chloride 105 Carbon Dioxide 24.8 Anion Gap 10 BUN < 5 L Creatinine 0.4 L Estim Creat Clear Calc 429.6 eGFR > 60 BUN/Creatinine Ratio 13 Glucose 79 Calculated Osmolality 275 Lactic Acid 0.8 Calcium 9.0 Syphilis Serology Nonreactive Hepatitis C Antibody Non Reactive HIV 1&2 Antibody Rapid Non-Reactive Quality Measures Quality Measures VTE prophylaxis Assessment & Plan Assessment Current Active Medications: Generic Name Dose Route Start Last Admin Trade Name Freq PRN Reason Stop Dose Admin Acetaminophen 650 mg 09/27/25 08:39 Acetaminophen 325 Mg Tablet PO 10/25/25 22:15 Q6H PRN Fever >101.5 or pain 1-10 Cephalexin HCl 1,000 mg 09/27/25 12:00 09/27/25 17:43 Cephalexin 250 Mg Capsule PO 10/04/25 11:59 1,000 mg QID PASCUAL Administration Enoxaparin Sodium 40 mg 09/26/25 09:00 09/27/25 09:22 Enoxaparin Sod Inj 40 Mg/0.4 Ml Syringe SC 10/10/25 08:59 40 mg QDAY PASCUAL Administration Folic Acid 1 mg 09/26/25 09:00 09/27/25 09:22 Folic Acid 1 Mg Tablet PO 10/26/25 08:59 1 mg DAILY PASCUAL Administration Multivit/Folic Acid/Iron 1 tab 09/27/25 09:00 09/27/25 09:22 Vitamin/Fe Fum/Fa Tablet PO 10/27/25 08:59 1 tab QDAY PASCUAL Administration Plan Sayra Lopez is a 29 yr female with no significant PMH. She has had four vaginal deliveries in the past. Currently is 14 weeks . Presenting with chief complaint of right lower extremity pain that started 1 to 2 days ago. No DVT, findings consistent with cellulitis. Start IV antibiotics in setting of UTI and cellulitis. #Cellulitis of RLE with satellite lesion at inner thigh, worsening despite antibiotic treatment #C/f acute compartment syndrome #Leukocytosis, down-trending Patient first started experiencing cramping sensation in her leg and painful area of erythema 09/25 venous doppler US of RLE was negative for DVT Area has progressively worsened with spreading erythema, increasing tenderness, and warmth despite treatment with Rocephin IV and clindamycin IV Dx: -09/25 tibia/fibula XR ordered, negative for fracture or osteomyelitis -09/25 urine cultures ordered, showed no growth -09/25 blood cultures ordered, showed [id number] -09/[address] ordered, showed cellulitis of subcutaneous fatty tissue of the right lower leg but no evidence of abscess or osteomyelitis -09/26 R lower extremity US ordered, showed findings most consistent with cellulitis -Work-up for hepatitis C, HIV 1&2, and syphilis ordered, showed ___ Rx: -ID has been consulted, appreciate recommendations -Keflex 1000 mg PO QID [09/27--], as per ID recommendations -s/p Rocephin 1 g IV qD [09/25-09/26] -s/p clindamycin 600 mg IV qD [09/26] -General Surgery has been consulted, recommends immediate transfer should suspicion arise for acute compartment syndrome or if clinical picture deteriorating #14 weeks gestation Follows with a specialist from [facility]. Last OBGYN check was a few days before 09/25 admission Dx: -09/26 ultrasound ordered, showed viable intrauterine gestation with cardiac motion of 155 bpm Rx: -Continue folic acid 1g daily - vitamin 1 tab daily -OBGYN (Dr. Lange) consulted due to request by patient to be evaluated by OBGYN, appreciate recommendations Hospital Management: Disposition: Medsurg, Cellulitis Diet: Regular GI Prophylaxis: None Bowel Prophylaxis: None DVT Prophylaxis: Lovenox CODE STATUS: Full Code I have examined the patient and conferred with my attending, Dr. Falcon, and my senior resident, Dr. Perdue, regarding them. Derick Soriano, DO PGY-1 Internal Medicine Attending Provider Attestation/Addendum I have examined the patient, reviewed labs and imaging findings, discussed the case with the resident(s), and reviewed entered orders. I agree with the plan of care as outlined in this note, with these additional summaries/recommendations: Patient seen at bedside. No acute overnight events. Patient still endorses right lower extremity pain and discomfort. Not fully able to bear weight. Rash appears slightly improved today. Sensation is intact, capillary refill less than 4 seconds, and patient able to move right lower extremity. No evidence of compartment syndrome at this time although we will continue to monitor closely. Leukocytosis improving. Consult in-house infectious disease for antibiotic stewardship. CT scan and ultrasound of lower extremity did not reveal any air in soft tissue. Patient encouraged to keep leg elevated. Continue anti- inflammatories and antipyretics. Patient is 14 weeks gestation and was evaluated by [facility] with reassuring assessment. Patient updated on the plan and in agreement. All questions answered to satisfaction. Please see residents note for additional details and management. Dr. Ezekiel MD
[2025-09-28] VITALS: BP 101/56; PULSE 99; RESP 17; TEMP 37; O2SAT 98
[2025-09-28 04:00] VITALS: BP 100/59; PULSE 94; RESP 17; TEMP 36.3; O2SAT 96
[2025-09-28 06:06] LABS: Basophils # (Auto) 0.0 Thou/mm3 (0.0-0.2); Basophils % (Auto) 0 % (0-2.5); Eosinophils # (Auto) 0.2 Thou/mm3 (0.0-0.5); Eosinophils % (Auto) 2 % (0-10); Hematocrit 33.3 % (36.0-46.0); Hemoglobin 11.5 g/dL (12.0-16.0); Immature Granulocytes Auto 0.04 Thou/mm3 (0.00-0.00); Lymphocytes # (Auto) 1.3 Thou/mm3 (1.0-4.8); Lymphocytes % (Auto) 12 % (10-50); Mean Corpuscular HGB Conc 34.5 g/dl (31.0-37.0); Mean Corpuscular Hemoglobin 30.5 pg (25.0-35.0); Mean Corpuscular Volume 88 fL (80-100); Monocytes # (Auto) 0.5 Thou/mm3 (0.0-0.8); Monocytes % (Auto) 4 % (0-12); Neutrophils # (Auto) 8.3 Thou/mm3 (1.8-7.7); Neutrophils % (Auto) 81 % (37-80); Nucleated Red Blood Cell # 0.00 Thou/mm3 (0.00-0.00); Nucleated Red Blood Cell % 0 /100 WBC (0); Platelet Count 174 Thou/mm3 (140-440); RDW Standard Deviation 41.9 fL (36.4-46.3); Red Blood Count 3.77 Miln/mm3 (4.00-5.20); White Blood Count 10.3 Thou/mm3 (3.6-11.0)
[2025-09-28 06:44] LABS: Anion Gap 10 (7-16); BUN/Creatinine Ratio 13 Ratio (12-20); Blood Urea Nitrogen < 5 mg/dL (9-23); Calcium 8.8 mg/dL (8.3-10.6); Carbon Dioxide 24.0 mMol/L (20.0-31.0); Chloride 105 mMol/L (98-107); Creatinine (Component) 0.4 mg/dL (0.6-1.3); Estimated Creatinine Clearance 429.6 mL/min (>60); Glucose 81 mg/dL (74-106); Osmolality,Calculated 273 (275-295); Potassium 3.3 mMol/L (3.4-5.1); Sodium 139 mMol/L (136-145); eGFR > 60 See Note
[2025-09-28 07:29] VITALS: BP 124/71; PULSE 84; RESP 17; TEMP 36.3; O2SAT 96
[2025-09-28] MEDS: ENOXAPARIN SOD INJ 40 MG/0.4 ML SYRINGE SC (08:05)
[2025-09-28] MEDS: PRENATAL VITAMIN/FE FUM/FA TABLET 1 TAB PO (08:05)
[2025-09-28] MEDS: FOLIC ACID 1 MG TABLET PO (08:05)
[2025-09-28 11:31] VITALS: BP 122/74; PULSE 76; RESP 17; TEMP 36.3; O2SAT 96
--- NOTE | 2025-09-28 12:34 | ESDS_ITS ---
<Statement entered by Ray Aguirre MD - 09/28/25 16:46> I have personally seen and examined the patient, agree with residents assessment and plan Patient plan of care was discussed with the attending physician, Dr. Ezekiel Aguirre, PGY2 Planned Discharge Date 09/28/25 DS: Providers Provider Date of admission: 09/25/25 22:16 Primary care physician: Colleen Mccarthy PA-C([facility] Admitting Provider: Mich Brady MD Attending Provider on Admission: Rinku Laurent MD Consults: 09/26/25 14:48 Consult to Obstetrics Routine Comment: Consulting Provider: Kellen Lange 09/27/25 01:31 Referral Wound Care Routine Comment: cracked open skin between right great and 2nd toe. 09/27/25 08:45 Consult to Infectious Diseases Routine Comment: cellulitis rapidly spreading despite abx Consulting Provider: Ruben Sam Attending Provider on DC: Sharif Falcon MD Discharging Provider: Nereida Casillas MD DS: Diagnosis Problem List Completed Was Problem List Reviewed/Reconciled?: Yes Hospital Course Hospital Course Hospital course: Ms. Sayra Lopez is a 29-year-old female at 14 weeks gestation with no significant past medical history who presented with acute right lower extremity pain, warmth, erythema, and swelling that had progressively worsened over 1?2 days. She had been evaluated at [facility] prior to presentation, where a venous Doppler was negative for DVT. On arrival to ED, she was tachycardic (HR 128), febrile (100.9F), and had leukocytosis to 17. UA showed positive leukocyte esterase and WBCs, consistent with UTI. She met SIRS 4/4 but had no end-organ dysfunction. Initial exam showed non-purulent cellulitis of the right leg with ascending erythema. She was started on IV Rocephin for cellulitis and UTI coverage. On 09/26, erythema progressed proximally with satellite lesions despite therapy. Clindamycin was trialed for MRSA coverage, but ID (Dr. Sam) was consulted and recommended switching to Keflex 1,000 mg PO QID, given -safe profile and appearance consistent with streptococcal lymphangitic cellulitis. Workup for HIV, HCV, and syphilis were ordered per ID guidance (results we negative). A CT right leg and repeat ultrasound showed cellulitis without abscess, gas, or osteomyelitis. General Surgery (Dr. Redd) evaluated and recommended continued medical management, with transfer only if suspicion arose for compartment syndrome or necrotizing fasciitis. The patient was monitored closely; sensation, pulses, and capillary refill remained intact. [facility] (Dr. Lange) evaluated the fetus; ultrasound demonstrated a viable intrauterine with HR 155 bpm. Over the next 24 hours, the patient improved: leukocytosis down-trended to 11.5, swelling and erythema significantly improved, and she reported markedly decreased pain. She was afebrile and hemodynamically stable, ambulating with less discomfort. Given clear improvement and ability to tolerate oral therapy, she is stable for discharge home on oral Keflex. Discharge Diagnoses: #Right lower extremity cellulitis (improving) #Lymphangitic streptococcal cellulitis pattern #Leukocytosis secondary to infection (resolved) #14-week intrauterine (stable) Discharge instructions: -Follow-up with PCP within 1 week of discharge. If you do not have appointment, [facility] Call [phone] to make an appointment. -Recommended to follow up with OBGY within 1week of discharge -Recommended to take Keflex 500mg 4times for 7days -Recommended to stop taking Ibuprofen -Recommended leg end elevation -Continue rest of the home medications -Return to ED if symptoms persist or return ----- Plan discussed with attending physician Dr. Falcon and senior resident Dr. Carla Casillas MD PGY-1 Internal Medicine Time Spent with Patient Time attestation: Total time spent providing and/or coordinating discharge services: Time spent: Greater than 30 minutes Exam Vital Signs Temp Pulse Resp BP Pulse Ox O2 Del Method 97.3 F 76 17 122/74 96 Room Air 09/28/25 11:09/28/25 11:09/28/25 11:09/28/25 11:09/28/25 11:09/28/25 11: Narrative Exam General: Alert and oriented x3. No acute distress, cooperative HEENT: NCAT, No JVD noted. Mucosa moist. Pupils are equal and reactive to light bilaterally Cardiovascular: Normal S1 and S2. Regular rate and rhythm. Respiratory: Lungs are clear to auscultation bilaterally. No wheezing or crackles heard. Abdomen: Soft, nontender, not distended, normal bowel sounds. Skin: Right lower extremity noted to have non purulent cellulitis, erythema, warmth, tender. Cellulitis has now improved from the day prior. Musculoskeletal: No gross injuries. Able to move all 4 extremities. Mild edema in RLE Neuro: Alert and oriented x3. No focal neuro deficits. Psych: Normal affect and mood Discharge Plan Plan Patient Disposition: HOME (Self Care) Patient condition on transfer: Stable Care Plan Goals: -Follow-up with PCP within 1 week of discharge. If you do not have appointment, [facility]. Call [phone] to make an appointment. -Recommended to follow up with OBGY within 1week of discharge -Recommended to take Keflex 500mg 4times for 7days -Recommended to stop taking Ibuprofen -Recommended leg end elevation -Continue rest of the home medications -Return to ED if symptoms persist or return Prescriptions/Referrals Prescriptions/Med Rec: New cephalexin 500 mg capsule 500 mg PO QID Qty: 28 0RF Continued ondansetron 4 mg tablet,disintegrating 4 mg PO Q6H PRN (Reason: nausea and vomiting) Qty: 10 0RF PNV no.95-ferrous fumarate-FA [] 28 mg iron- 800 mcg tablet 1 tab PO DAILY folic acid 1 mg tablet 1 mg PO DAILY Discontinued ibuprofen [IBU] 800 mg tablet 800 mg PO Q8H Qty: 20 0RF Referrals: Fabio ([facility]),AVA Macias [Primary Care Provider] Patient/Caregiver Discharge Instructions Education Materials: Preg 2nd Trimester, Discharge Instructions for Cellulitis, ED Cellulitis Print Language: Chinese Stand Alone Forms: Rosemary Award Info., Patient Portal Info Letter Discharge Order Discharge Orders: Discharge (Routine); Ordered 09/28/25 Ordered By: Ray Aguirre Quality Discharge Quality Measures VTE prophylaxis Attestestation MD Attestation I have examined the patient, reviewed labs and imaging findings, discussed the case with the resident(s), and reviewed entered orders. I agree with the plan of care as outlined in this note. Time Spent: [address] Ezekiel MD
== END 2025-09-28 14:38 | disposition home or self-care (01) | DRG 566 ==
LOC: SERX 22:25 → S3SX 09-26 06:10 → SERHOLD 09-26 06:25
PROVIDERS: Internal Medicine Infectious Disease; Physician Assistant; Student in an Organized Health Care Education/Training Program; Admitting Provider Student in an Organized Health Care Education/Training Program; Emergency Provider Emergency Medicine; PCP Physician Assistant; Visit Provider Obstetrics & Gynecology
DX: O23.42 Unspecified infection of urinary tract in pregnancy, second trimester (principal); O99.712 Diseases of the skin and subcutaneous tissue complicating pregnancy, second trimester; Z3A.14 14 weeks gestation of pregnancy; L03.115 Cellulitis of right lower limb
CPT/HCPCS: 36415; 73590; 73700; 76815; 76882; 80048; 80053; 80307; 81001; 83036; 83605; 84145; 84443; 85025; 85652; 86140; 86703; 86780; 86803; 87040; 87081; 87086; 93971; 96361; 96365; 99284; J0689; J0696; J1650; J7030; S0077; A9270; J0737